=== PATIENT | female | born 1965 | race Caucasian/White ===

== ENCOUNTER 2017-02-05 15:44 | Inpatient (IN) | payer MEDICARE, MEDICAID ==
[~2017-02-05] VITALS: Ht 154.9 cm; Wt 139.5 kg
[~2017-02-05 15:44] MED LIST: BENZ1TAB7 PO; DOXE100C4 PO; GABA-502 PO; LAMO150T PO; LORA1TAB PO; METF1000 PO; OMEP20CA11 PO; PRAZ1CAP2 PO; RANI150C4 PO; RISP1TAB3 PO
[2017-02-05 16:00] VITALS: BP 127/83; PULSE 96; RESP 12
[2017-02-05 17:12] LABS: BASOPHILS % (AUTO) 0.2 % (0-3); EOSINOPHILS % (AUTO) 0.4 % (0-5); MONOCYTES % (AUTO) 3.7 % (4-12); Mean Corpuscular Volume 84.2 fL (81-100); NEUTROPHILS % (AUTO) 86.5 % (40-74); Platelet Count 197 bil/L (150-400)
[2017-02-05 17:35] LABS: Magnesium 1.4 mg/dL (1.6-2.6)
--- NOTE | 2017-02-05 18:12 | ED.REPORT ---
HPI-Abd Pain F Under 40 Date of Service Feb 05, 2017 ED Provider: Dr. Mathews. A 52 year old female with a history of umbilical hernia presents to the ED complaining of abdominal pain onset last night at midnight. Pain is described as shooting. She has had similar pain in the past that was related to her hernia. Drinking water exacerbates the pain and also causes nausea, diarrhea and vomiting, thus she has not had any food or fluid intake in the last 24 hours. Nursing Notes Stated Complaint: SEVERE ABDOMINAL PAIN Chief Complaint: Female Abdominal Pain Nursing Notes Reviewed: Yes Allergies: Coded Allergies: zolpidem (Verified Adverse Reaction, Severe, AMNESIA X 1 WEEK, LANDED IN THE HOSPITAL, 02/05/17) Scheduled Aripiprazole (Aripiprazole) 10 Mg Tablet 10 MG PO QAM Benztropine Mesylate (Benztropine Mesylate) 1 Mg Tablet 1 MG PO BID Doxepin (Doxepin) 150 Mg Capsule 150 MG PO HS Gabapentin (Gabapentin) 300 Mg Capsule 600 MG PO TID Glimepiride (Glimepiride) 1 Mg Tablet 1 MG PO DAILYWM Lamotrigine (Lamictal) 150 Mg Tablet 150 MG PO QAM Lorazepam (Lorazepam) 2 Mg Tablet 1 MG PO QID Lovastatin (Lovastatin) 20 Mg Tablet 20 MG PO HS Metformin (Glucophage) 1,000 Mg Tablet 1,000 MG PO BIDWM Mirtazapine (Mirtazapine) 45 Mg Tablet 45 MG PO HS Omeprazole (Omeprazole) 20 Mg Capsule.dr 20 MG PO QAM Prazosin (Prazosin) 1 Mg Capsule 1 MG PO HS Ranitidine (Ranitidine) 150 Mg Capsule 150 MG PO HS Risperidone (Risperidone) 1 Mg Tablet 1 MG PO HS General Time Seen by MD: 18:12 Chief Complaint Abdominal pain Hx Obtained From: Patient Arrived By: Walk-in Sudden in Onset?: No Onset Occurred: Yesterday (Last night at midnight) Symptom Duration: Since onset Progression since Onset: Unchanged Severity: Current: Moderate Severity: Maximum: Moderate Recent Healthcare: No recent doctor visit Similar Sx Previous: No Past Medical History Past Medical History Umbilical hernia, diagnosed 3 weeks ago. Reports no known allergies. 1. Depression 2. Anterior mediastinal mass 3. Chronic lower extremity edema 4. Arthritis 5. Bipolar disorder 6. Anxiety disorder 7. Nicotinic dependence 8. Morbid obesity Reports: Diabetes mellitus, GERD Past Surgical History laminectomy in 2011 Tracie and Hyst performed at the same time. Reports: Cholecystectomy, Hysterectomy Smoking History Current Every Day Smoker Social History Alcohol Use: "Social" Drug Use: Denies drug use Other Social History: Good social support, Local resident Ambulatory Status Independent Review of Systems Constitutional: Denies: Chills, Fever Respiratory: Denies: Non-productive cough Cardiovascular: Denies: Chest pain GI: Reports: Abdominal pain, Diarrhea, Nausea, Vomiting Complete sys rev & neg: except as marked. Physical Exam Initial Vital Signs Vital Signs (First) Date Time Temp Pulse Resp B/P Pulse Ox O2 Delivery O2 Flow Rate FiO2 02/05/17 16:00 37.4 96 12 127/83 Room Air 02/05/17 20:49 95 Initial VS: Reviewed General/Constitutional: Awake, Alert Distress / Hydration: Positive: Distress moderate Respiratory / Chest: Atraumatic, Breath sounds NL, Breath sounds = bilat, No respiratory distress, No rales, No rhonchi, No wheezing Cardiovascular: Heart rate NL, Regular rhythm, Heart sounds NL, No gallop, No murmurs, No rubs Patient has diffuse abdominal pain that is recreated. Back: Atraumatic, Full range of motion Head / Eyes: Normocephalic, PERRL, EOMI Skin: Atraumatic, Warm Patient is diaphoretic. Neurologic: Oriented X3, Speech NL Neck: Atraumatic, No swelling Upper Extremity / MS: No swelling, No edema Lower Extremity / Pelvis / MS: No swelling, No edema Interpretation & Diagnostics Lab Results Interpretation Result Diagram: 02/06/17 0214 02/06/17 0214 Test 02/05/17 17:00 02/05/17 17:47 Hemoglobin A1c 8.1% (4.8-5.6) Triglycerides Level 192mg/dL (0-149) Cholesterol Level 184mg/dL (100-199) LDL Cholesterol, Calculated 113.600mg/dL (0-99) VLDL Cholesterol 38.400mg/dL HDL Cholesterol 32mg/dL (>39) Cholesterol/HDL Ratio 5.75 (0.0-4.4) Lipase 12U/L (13-60) Hold Allan Top Tube Received (Received) Urine Color Dark yellow (YELLOW) Urine Appearance Hazy (CLEAR,HAZY) Urine pH 5.5 (5.0-8.0) Urine Specific [place] 1.020 (1.003-1.035) Urine Protein Tracemg/dL (NEG,TRACE) Urine Glucose (UA) 100mg/dL (NEGATIVE) Urine Ketones Negativemg/dL (NEGATIVE) Urine Occult Blood Negative (NEGATIVE) Urine Nitrite Negative (NEGATIVE) Urine Bilirubin Negative (NEGATIVE) Urine Urobilinogen Normalmg/dL (NORMAL) Urine Leukocyte Esterase Negative (NEGATIVE) Urine RBC 0-2/hpf (0-2) Urine WBC 0-5/hpf (0-5) Urine Epithelial Cells Many/hpf (NONE-MOD) Urine Crystals None seen (NONE SEEN) Urine Bacteria Few/hpf (NONE-FEW) Urine Hyaline Casts None/lpf (NONE) Urine Granular Casts None seen (NONE SEEN) Urine Waxy Casts None seen (NONE SEEN) Urine Red Blood Cell Casts None seen (NONE SEEN) Urine White Blood Cell Casts None seen (NONE SEEN) Urine Mucus None seen (None Seen) Urine Trichomonas None seen (NONE SEEN) Urine Yeast None (NONE SEEN) Urinalysis Comment Nn Urine Culture Reflexed Not indicated Hold Urine Received (Received) ECG Interpretation ECG Interpretation: Sinus rhythm. Anterolateral leads in V1-V4 which has been present on prior. No changes from prior EKG. Time: 20:30 Interpreted by: ED physician CT Abd / Pelvis Interpretation [facility]: IMPRESSION: 1. Mild peripancreatic fat stranding suspiciousfor acute pancreatitis. 2. Hepatosplenomegaly and hepatic steatosis. Note: The preliminary [facility] interpretation and the final report are concordant. Dictated by: Juliana Rincon M.D. on 02/05/2017 at 21:23. Approved by: Juliana Rincon M.D. on 02/05/2017 at 21:27. [facility]: CONCLUSION: Mild stranding is noted near the pancreas. The possibility of mild or early pancreatitis is raised. Hepatosplenomegaly. Findings consistent with fatty infiltration of the liver. Status post cholecystectomy. Signed by Silverio Seals M.D. Interpretation / Wet Read by: Interpret - Radiologist Re-Eval/Medical Decision Med Decision/Clinical Course Jsesie was still pretty miserable in spite of fluids opiates and nausea medicine. Her abdomen was still operator helper. The CT scan is concerning for early pancreatitis. As such she will be admitted to the hospitalist for further care and treatment. Source of Hx: Old records Re-Evaluation/Progress : Time of Eval: 22:02 Re-Evaluation/Progress Note: Rechecked patient and explained plan for disharge. Patient understands and agrees with the plan. All questions addressed. Consultation : Referral / Consult Name: Isiah Palomo MD Call Returned at: 22:08 Assembly Hand: Agrees with eval, Agrees with plan, Accepts admit Note: Discussed patient case with Dr. Palomo who accepts patient admit. Counseled Regarding: Diagnosis, Lab results, Need for follow-up, Need for admission Discharge & Departure Primary Impression: Acute pancreatitis Pancreatitis type: unspecified pancreatitis type Acute pancreatitis complication: unspecified Qualified Code: K85.90 - Acute pancreatitis without necrosis or infection, unspecified Additional Impression: Gastroenteritis Disposition: ADMITTED TO HOSPITAL Discharge Condition All VS Reviewed: Yes Condition: Stable Referrals: Ml Alfonso MD (PCP) Maurice Attestation Portions of this note were transcribed by Jose Roberto Lopez. I, Dr. Mathews personally performed the history, physical exam and medical decision-making; I reviewed and confirmed the accuracy of the information in the transcribed note. Signed by: Maurice Hector, 02/05/2017, [id number]. copies to: Ml Alfonso MD, Todd P DO Feb 05, 2017 18:12 Jose Roberto Lopez Feb 05, 2017 19:03 Negative (NEGATIVE) Urine Urobilinogen Normalmg/dL (NORMAL) Urine Leukocyte Esterase Negative (NEGATIVE) Urine RBC 0-2/hpf (0-2) Urine WBC 0-5/hpf (0-5) Urine Epithelial Cells Many/hpf (NONE-MOD) Urine Crystals None seen (NONE SEEN) Urine Bacteria Few/hpf (NONE-FEW) Urine Hyaline Casts None/lpf (NONE) Urine Granular Casts None seen (NONE SEEN) Urine Waxy Casts None seen (NONE SEEN) Urine Red Blood Cell Casts None seen (NONE SEEN) Urine White Blood Cell Casts None seen (NONE SEEN) Urine Mucus None seen (None Seen) Urine Trichomonas None seen (NONE SEEN) Urine Yeast None (NONE SEEN) Urinalysis Comment Nn Urine Culture Reflexed Not indicated Hold Urine Received (Received) Lactic Acid Level 2.3mmol/L (0.4-2.0) ECG Interpretation ECG Interpretation: Sinus rhythm. Anterolateral leads in V1-V4 which has been present on prior. No changes from prior EKG. Time: 20:30 Interpreted by: ED physician CT Abd / Pelvis Interpretation [facility]: IMPRESSION: 1. Mild peripancreatic fat stranding suspiciousfor acute pancreatitis. 2. Hepatosplenomegaly and hepatic steatosis. Note: The preliminary [facility] interpretation and the final report are concordant. Dictated by: Juliana Rincon M.D. on 02/05/2017 at 21:23. Approved by: Juliana Rincon M.D. on 02/05/2017 at 21:27. [facility]: CONCLUSION: Mild stranding is noted near the pancreas. The possibility of mild or early pancreatitis is raised. Hepatosplenomegaly. Findings consistent with fatty infiltration of the liver. Status post cholecystectomy. Signed by Silverio Seals M.D. Interpretation / Wet Read by: Interpret - Radiologist Re-Eval/Medical Decision Source of Hx: Old records Re-Evaluation/Progress : Time of Eval: 22:02 Re-Evaluation/Progress Note: Rechecked patient and explained plan for disharge. Patient understands and agrees with the plan. All questions addressed. Consultation : Referral / Consult Name: Isiah Palomo MD Call Returned at: 22:08 Assembly Hand: Agrees with eval, Agrees with plan, Accepts admit Note: Discussed patient case with Dr. Palomo who accepts patient admit. Counseled Regarding: Diagnosis, Lab results, Need for follow-up, Need for admission Discharge & Departure Disposition: ADMITTED TO HOSPITAL Discharge Condition All VS Reviewed: Yes Condition: Stable Referrals: Ml Alfonso MD (PCP) Maurice Attestation Portions of this note were transcribed by Jose Roberto Lopez. I, Dr. Mathews personally performed the history, physical exam and medical decision-making; I reviewed and confirmed the accuracy of the information in the transcribed note. Signed by: Maurice Hector, 02/05/2017, [id number]. copies to: Ml Alfonso MD, Todd P DO Feb 05, 2017 18:12 Jose Roberto Lopez Feb 05, 2017 19:03
[2017-02-05] MEDS ORDERED: 0.9% Sodium Chloride 1,000 ML IV ONE ×2 (19:01→23:00)
[2017-02-05] MEDS: Ondansetron 2 mg/mL 2 mL Inj IVPUSH PRN ×2 (19:52→21:55)
[2017-02-05] MEDS: HYDROmorphone 0.5 mg/0.5 mL iSecure Syringe IVPUSH PRN ×2 (19:52→21:51)
[2017-02-05 20:49] VITALS: BP 114/76; PULSE 90; RESP 18; O2SAT 95
[2017-02-05 21:09] LABS: APPEARANCE,URINE HAZY (CLEAR,HAZY); COLOR,URINE DARK YELLOW (YELLOW); PH,URINE 5.5 (5.0-8.0)
[2017-02-05 21:10] LABS: OCCULT BLOOD,URINE NEGATIVE (NEGATIVE); UROBILINOGEN,URINE NORMAL (NORMAL)
--- NOTE | 2017-02-05 21:28 | DRSVH ---
PROCEDURE: CT ABDOMEN AND PELVIS WITH CONTRAST ([id number]) INDICATIONS: midline severe pain, TECHNIQUE: After the administration of intravenous contrast, 5 mm thick sections acquired from the diaphragm to the symphysis. 5 mm coronal and sagittal reformats were acquired. For radiation dose reduction, the following was used: automated exposure control, adjustment of mA and/or kV according to patient siz e. COMPARISON: None. FINDINGS: Image quality: Excellent. ABDOMEN: Lung bases: Lung bases are clear. Heart size is normal. Solid organs: The liver is enlarged and diffusely hypodense suggesting fatty infiltration. The splee n demonstrates a normal enhancement and measures 18.9 cm in length. The Gallbladder is surgically abs ent. Biliary system is non dilated. There is homogeneous enhancement of the pancreas. Mild peripancr eatic fat stranding is present around the pancreatic head. A there is a small fluid filled duodenal d iverticulum. No adrenal nodules. Kidneys demonstrate normal size and enhancement, without hydronephr osis. Peritoneum and bowel: Bowel loops demonstrate normal wall thickness and caliber. The appendix is thi n walled. No free fluid or air. Nodes and vessels: No retroperitoneal or mesenteric adenopathy by size criteria. Aorta and inferior vena cava are normal in size. Miscellaneous: No ventral hernias. PELVIS: Genitourinary: Bladder wall thickness is normal. The uterus is nonvisualized and may be surgically absent. Miscellaneous: No inguinal hernias or adenopathy. Bones: No suspicious bony lesions. No vertebral body compression fractures. IMPRESSION: 1. Mild peripancreatic fat stranding suspicious for acute pancreatitis. 2. Hepatosplenomegaly and hepatic steatosis. Note: The preliminary [facility] interpretation and the final report are concordant. Dictated by: Juliana Rincon M.D. on 02/05/2017 at 21:23 Approved by: Juliana Rincon M.D. on 02/05/2017 at 21:27
[2017-02-05] MEDS ORDERED: 0.9% Sodium Chloride 1,000 ML IV SCH (22:11)
[2017-02-05] MEDS ORDERED: Polyethylene Glycol (PEG) 17 Gm Powder PO PRN (22:15)
[2017-02-05] MEDS ORDERED: Alum-Mag Hydrox-Simeth 30 mL Suspension PO PRN (22:15)
[2017-02-05] MEDS ORDERED: GABA-502 PO (22:58)
[2017-02-05] MEDS ORDERED: DOXE150C7 PO (22:58)
[2017-02-05] MEDS ORDERED: LORA2TAB PO (22:58)
[2017-02-05] MEDS ORDERED: ARIP10TA16 PO (22:59)
[2017-02-05] MEDS ORDERED: LOVA20TA PO (22:59)
[2017-02-05] MEDS ORDERED: GLIM1TAB PO (22:59)
[2017-02-05] MEDS ORDERED: MIRT45TA5 PO (22:59)
[2017-02-05] MEDS ORDERED: Promethazine Inj 12.5 MG in 0.9% Sodium Chloride-Pha MIX 100 ML IV ONE (23:00)
--- NOTE | 2017-02-06 00:24 | NUR ---
Admit Note Pt able to answer H&P. Oriented to room and use of call light. Pt alert and oriented x3. Anxious especially about her meds for the night. Pt reports Phenergan taking effect for nausea at this time.
[2017-02-06] MEDS ORDERED: Doxepin 50 mg Capsule PO SCH (00:36)
[2017-02-06] MEDS: Heparin 5,000 Unit/mL Inj SUBQ SCH ×3 (00:38→15:40)
[2017-02-06 00:46] VITALS: BP 120/73; PULSE 82; O2SAT 95
[2017-02-06] MEDS: HYDROmorphone 0.5 mg/0.5 mL iSecure Syringe IVPUSH PRN (00:49)
--- NOTE | 2017-02-06 00:53 | PCM.HPMED ---
Subjective Date of Service Feb 05, 2017 Primary Provider: Admitting Physician: Primary Care Physician: Ml Alfonso MD Attending Physician: Admit Status: From the Emergency Department Chief Complaint: Abdominal pain History of Present Illness: Patient is a 52 y/o female with a history of diabetes mellitus type 2, morbid obesity, bipolar disorder and GERD who presented to the ED with the complaint of abdominal pain for the past couple of days. Associated symptoms include nausea, vomiting and severe unrelenting RUQ abdominal pain since last night. She states that she has never had anything like this before but the pain is similar to the pain she experienced with her hernia. She denies alcohol or illicit drug use. She does report eating a marijuana cookie several days ago but this was the first time in years and she states that she did not enjoy it. Additionally, she reports anxiety about her need for admission and would really like to know what is causing this. She states that she recently was diagnosed with hernia and evaluated by a surgeon, whose name she does not remember, who advised bariatric consult prior to having her hernia repaired. The patient states that she has lost 40lbs recently and is trying to lose weight without bariatric surgery. She denies fever, chills, chest pain, palpitations or shortness of breath. She states that she has not been able to eat anything for the past couple of days because eating and drinking seems to exacerbate her symptoms. She denies any alleviating factors and describes the pain as severe with radiation to her RUQ. Of note she is s/p cholecystectomy approximately 10 years ago without complications. In the ED, vitals 37.4, BP 127/83, HR 96, RR 12, SpO2 95% on room air. Labs: Lipase 12, WBC 8.1, H/H 13.9/43.3, plts 197, sodium 131, potassium 4.1, chloride 94, bicarb 19, BUN 14, creatinine 0.74, serum glucose 280, lactic acid 2.7, calcium 8.6, magnesium 1.4, AST/ALT 81/85, alk phos 98, total bili 0.7. Urinalysis with no signs of infection. ECG showing sinus rhythm, no acute ischemic changes and similar to prior EKG. CT abdomen and pelvis wild mild peripancreatic fat stranding suspicious for acute pancreatitis and hepatosplenomegaly as well as hepatic steatosis. Review of Systems: A comprehensive review of systems was conducted with the patient and found to be negative except as above in the History of Present Illness. Allergies Coded Allergies: zolpidem (Verified Adverse Reaction, Severe, AMNESIA X 1 WEEK, LANDED IN THE HOSPITAL, 02/05/17) Home Medications Benztropine Mesylate 1 MG PO BID Doxepin 150 MG PO DAILY Gabapentin 300 MG PO TID Lamotrigine 150 MG PO DAILY Lorazepam 1 MG PO QID Metformin 1,000 MG PO BID Omeprazole 20 MG PO DAILY Prazosin 1 MG PO HS Risperidone 1 MG PO HS Ranitidine 150 MG PO DAILY PRN For Epigastric Distress mirtazipine PMH Umbilical hernia Depression Anterior mediastinal mass Chronic lower extremity edema Arthritis Bipolar disorder Anxiety disorder Nicotinic dependence Morbid obesity Diabetes mellitus GERD Surgical History Laminectomy in 2010 Cervical Fusion of C3-C4 and C5-C6 Right and left wrist surgery Cholecystectomy ALMA with BSO Tubal Ligation Family History Paternal Grandfather - heart attack in 70s Maternal Grandmother - heart attack in late 60s Father - esophageal cancer Mother - Hypertension Social History Hx Alcohol Use: No (once a year) Hx Substance Use: No Hx Tobacco Use: Yes (1 ppd x 20 years) Smoking Status: Current Every Day Smoker, Former Smoker Living Arrangement: with Friends/Roommate Exam Vital Signs Vital Sign - Last Date Time Temp Pulse Resp B/P Pulse Ox O2 Delivery O2 Flow Rate FiO2 02/05/17 20:49 90 18 114/76 95 Room Air 02/05/17 16:00 37.4 Exam Gen: Obese, well-appearing female who appears uncomfortable but in no acute distress. HEENT: Normocephalic, atraumatic. PERRLA, no scleral icterus, oropharynx appears normal with moist mucosa Neck: Non-tender, no JVD/bruits or lymphadenopathy Cardiac: RRR with no murmurs, rubs or gallops appreciated Pulmonary: Clear to auscultation bilaterally with no crackles, wheezes, or rhonchi. Normal respiratory effort with no use of accessory muscles. Abd: Obese, soft, mildly distended, diffusely tender to palpation william in epigastric area and RUQ, no rebound or guarding, small reducible ventral hernia present. Ext: No clubbing, cyanosis, edema, or lymphadenopathy appreciated. Skin: Normal temperature, turgor, and texture; no rash, ulcers, or subcutaneous nodules appreciated. Neuro: Cranial nerves grossly intact. Normal muscle strength, tone, and bulk. Reflexes, coordination, and sensory function within normal limits. No known gait impairment. Psych: Normal mood and affect. Alert and oriented to person, place, and time. Lab and Diagnostics Labs Laboratory Tests Test 02/05/17 17:00 02/05/17 17:47 White Blood Count 8.1th/mm3 (3.8-10.1) Red Blood Count 5.14mil/mm3 (3.90-5.20) Hemoglobin 13.9g/dL (12.0-15.6) Hematocrit 43.3% (35.0-46.0) Mean Corpuscular Volume 84.2fL (81-100) Mean Corpuscular Hemoglobin 27.0pg (27.0-35.0) Mean Corpuscular Hemoglobin Concent 32.1% (32.0-37.0) Red Cell Distribution Width 14.5% (12.3-15.4) Platelet Count 197bil/L (150-400) Neutrophils (%) (Auto) 86.5% (40-74) Lymphocytes (%) (Auto) 8.7% (14-46) Monocytes (%) (Auto) 3.7% (4-12) Eosinophils (%) (Auto) 0.4% (0-5) Basophils (%) (Auto) 0.2% (0-3) Sodium Level 131mEq/L (134-144) Potassium Level 4.1mEq/L (3.5-5.2) Chloride Level 94mEq/L (97-108) Carbon Dioxide Level 19mmol/L (18-29) Blood Urea Nitrogen 14mg/dL (6-24) Creatinine 0.74mg/dL (0.57-1.00) Estimat Glomerular Filtration Rate 119mL/min (>59) Glucose Level 280mg/dL (60-99) Lactic Acid Level 2.7mmol/L (0.4-2.0) Calcium Level 8.6mg/dL (8.5-10.1) Magnesium Level 1.4mg/dL (1.6-2.6) Total Bilirubin 0.7mg/dL (0.0-1.2) Aspartate Amino Transf (AST/SGOT) 81U/L (0-50) Alanine Aminotransferase (ALT/SGPT) 85U/L (0-32) Alkaline Phosphatase 98U/L (25-150) Total Protein 7.2g/dL (6.4-8.4) Albumin 4.1g/dL (3.4-5.0) Lipase 12U/L (13-60) Hold Allan Top Tube Received (Received) Urine Color Dark yellow (YELLOW) Urine Appearance Hazy (CLEAR,HAZY) Urine pH 5.5 (5.0-8.0) Urine Specific [place] 1.020 (1.003-1.035) Urine Protein Tracemg/dL (NEG,TRACE) Urine Glucose (UA) 100mg/dL (NEGATIVE) Urine Ketones Negativemg/dL (NEGATIVE) Urine Occult Blood Negative (NEGATIVE) Urine Nitrite Negative (NEGATIVE) Urine Bilirubin Negative (NEGATIVE) Urine Urobilinogen Normalmg/dL (NORMAL) Urine Leukocyte Esterase Negative (NEGATIVE) Urine RBC 0-2/hpf (0-2) Urine WBC 0-5/hpf (0-5) Urine Epithelial Cells Many/hpf (NONE-MOD) Urine Crystals None seen (NONE SEEN) Urine Bacteria Few/hpf (NONE-FEW) Urine Hyaline Casts None/lpf (NONE) Urine Granular Casts None seen (NONE SEEN) Urine Waxy Casts None seen (NONE SEEN) Urine Red Blood Cell Casts None seen (NONE SEEN) Urine White Blood Cell Casts None seen (NONE SEEN) Urine Mucus None seen (None Seen) Urine Trichomonas None seen (NONE SEEN) Urine Yeast None (NONE SEEN) Urinalysis Comment Nn Urine Culture Reflexed Not indicated Hold Urine Received (Received) Result Diagram: 02/05/17 1700 02/05/17 1700 X-Rays, CTs and MRIs CT ABDOMEN AND PELVIS WITH CONTRAST IMPRESSION: 1. Mild peripancreatic fat stranding suspicious for acute pancreatitis. 2. Hepatosplenomegaly and hepatic steatosis. Note: The preliminary [facility] interpretation and the final report are concordant. Dictated by: Juliana Rincon M.D. on 02/05/2017 at 21:23 Approved by: Juliana Rincon M.D. on 02/05/2017 at 21:27 Assessment & Plan 52 y/o female with a history of diabetes mellitus type 2, morbid obesity, and GERD who presented to the ED with the complaint of worsening abdominal pain. Admitted for further management and evaluation of acute pancreatitis. 1. Acute pancreatitis, pos. Active. -Patient is ~10yrs s/p cholecystectomy, denies alcohol or illicit drug use. -Lipase 12, liver enzymes elevated, non-obstructive pattern -in ED: s/p 1L bolus of normal saline x2, zofran/promethazine for nausea, IV dilaudid for pain -triglyceride level, pending -Keep patient NPO -IV fluid resuscitation, normal saline at 200mls/hr -Pain control IV hydromorphone 1mg q4h, prn -CBC, CMP in the morning 2. Lactic acidosis, poa. Active -likely secondary to #1 -lactic acid 2.7 on admission -will trend lactic acid q4 -treat underlying cause, as above 3. Transaminitis, unknown chronicity, poa. Active -likely chronic secondary to fatty infiltration as well as #1 -AST/ALT 81/85, alk phos 98, total bili 0.7 -CMP in the morning 4. Hyponatremia, poa. Active. -sodium sodium 131 -IVFs as above -CMP in the morning 5. Hypomagnesemia, poa. Active -magnesium 1.4 -replete w/IV magnesium -CMP in the morning 6. Diabetes mellitus type 2 (chronic), poa. Ongoing -serum glucose 280 -HbA1c pending -held metformin, glimeperide -low dose correctional insulin ordered 7. Hx of bipolar disorder and anxiety (chronic), poa. Ongoing -continue home medications FEN: NPO IVF: NS at 100mls/hr DVT Prophylaxis: Sub-q Heparin, 5,000units Q8h PRN: Acetaminophen-fever/headache/mild/moderate pain Antiemetics, as needed Bowel regimen, as needed. Disposition: Patient admitted under inpatient status with expected length of stay > 2 midnights for severity of present symptoms, complexities of treatment plan and risk for adverse event. Pain Evaluation: Adequate Pain Control VTE Prophylaxis Indicated: Meets Criteria for Anticoag Therapy VTE Prophylaxis: Sub-Q Heparin (Unfractionated) Resuscitation Status: CPR: Attempt Resuscitation Attending Statement The patient was seen and examined together with Dr. Brunson on 02/05 and I agree with the history, exam and plan as outlined in the note above. Madeline Brunson DO Feb 05, 2017 22:11 Isiah Palomo MD Feb 06, 2017 01:47
[2017-02-06] MEDS ORDERED: Glucose 40% Oral Gel 15 Gm Tube PO PRN (01:40)
[2017-02-06] MEDS: LORazepam 1 mg Tablet PO PRN ×4 (01:56→21:46)
[2017-02-06] MEDS: risperiDONE 1 mg Tablet PO SCH ×2 (02:01→21:58)
[2017-02-06 02:26] LABS: BASOPHILS % (AUTO) 0.3 % (0-3); EOSINOPHILS % (AUTO) 0.2 % (0-5); Mean Corpuscular Volume 84.9 fL (81-100); NEUTROPHILS % (AUTO) 67.3 % (40-74); Platelet Count 183 bil/L (150-400)
[2017-02-06 04:11] VITALS: BP 138/71; PULSE 91; O2SAT 96
--- NOTE | 2017-02-06 04:46 | NUR ---
Pain/Anxiety Patient reports Dilaudid helps with her pain. Pain does not completely go away with Dilaudid. Pt anxious r/t her home meds. Reassured patient and provided most of her home meds. Pt sleeping but easily arousable. No further nausea/vomiting noted/reported at this time. Addendum: 02/06/17 at 0610 by CHELSIE WHITE RN Diarrhea Pt had x1 watery, yellow loose bm. aware of Mg 1.4 with new orders noted.
[2017-02-06] MEDS ORDERED: Magnesium Sulf 2 Gm/50mL Water 2 GM in IV Premix 1 EACH IV ONE (05:25)
[2017-02-06] MEDS: Insulin LISPRO 300 Unit/3 mL Inj SUBQ SCH ×4 (05:34→22:00)
[2017-02-06] MEDS: HYDROmorphone 1 mg/mL Inj IVPUSH PRN ×4 (05:46→21:51)
[2017-02-06] MEDS: 0.9% Sodium Chloride 1,000 ML IV SCH ×4 (06:30→22:14)
[2017-02-06] MEDS: Ondansetron 2 mg/mL 2 mL Inj IVPUSH PRN ×2 (06:40→12:10)
[2017-02-06] MEDS: lamoTRIgine 100 mg Tablet PO SCH (07:52)
[2017-02-06] MEDS: ARIPiprazole 10 mg Tablet PO SCH (07:52)
[2017-02-06] MEDS: Pantoprazole 20 mg ER24 Tablet PO SCH (07:52)
[2017-02-06 08:04] VITALS: BP 111/46; PULSE 79; RESP 18; O2SAT 96
[2017-02-06 12:13] VITALS: BP 95/44; PULSE 76; RESP 16; O2SAT 94
--- NOTE | 2017-02-06 14:28 | NUR ---
Admit [facility] – [place] Pt admtted to [facility] [place] room 3017 at 1312. Pt denied pain. IVF infusing. Pt A&O. Ambulated in hallway shortly after arriving to unit. Pt oriented to room and facility. Denies having questions. Bed in low position, upper rails up, call light in reach. Will continue to monitor.
--- NOTE | 2017-02-06 16:33 | PCM.PNMED ---
Subjective Date of Service Feb 06, 2017 Subjective Patient was seen and examined at bedside today. Patient denies any chest pain, shortness of breath, nausea, vomiting, diarrhea. Patient does report abdominal pain in the right upper quadrant but states that the pain has improved since admission. Overnight events: None Exam Vital Signs Vital Sign - Last Date Time Temp Pulse Resp B/P Pulse Ox O2 Delivery O2 Flow Rate FiO2 02/06/17 12:13 36.7 76 16 95/44 94 Room Air 02/06/17 04:11 2.00 Intake and Output 02/05/17 02/05/17 02/06/17 Cumulative From/Thru 15:00 23:00 07:00 02/05/17 16:00 - 02/06/17 06:07 Intake Total 1000 ml 1884 ml 2884 ml Output Total 350 ml 350 ml Balance 1000 ml 1534 ml 2534 ml Intake IV Total 1000 ml 1884 ml 2884 ml Output Urine Total 350 ml 350 ml # Voids 4 4 # Bowel Movements 1 1 Exam Physical Exam: GEN: Patient was awake, alert, responding appropriately to questions HEENT: Pupils equal round and reactive to light, extraocular eye muscles intact , Neck soft supple, trachea midline, nomocephalic/atraumatic CV: +S1/S2, regular rate and rhythm, no murmurs auscultated Respiratory: CTAB, no wheezes, rales, rhonchi GI: +bowel sounds x4, soft, compressible, mild tenderness to palpation in the midepigastric region, moderate tenderness in the right upper quadrant region, positive Mcrae sign EXT: no clubbing, cyanosis, edema Neuro: Cranial nerves II-XII grossly intact Psych: mood and affect were appropriate IVs and Medications Medications Reviewed: Medications were reviewed in detail Lab and Diagnostics Result Diagram: 02/06/1721302/06/17213 X-Rays, CTs and MRIs CT ABDOMEN AND PELVIS WITH CONTRAST IMPRESSION: 1. Mild peripancreatic fat stranding suspicious for acute pancreatitis. 2. Hepatosplenomegaly and hepatic steatosis. Note: The preliminary [facility] interpretation and the final report are concordant. Dictated by: Juliana Rincon M.D. on 02/05/2017 at 21:23 Approved by: Juliana Rincon M.D. on 02/05/2017 at 21:27 Assessment & Plan 52-year-old female with a history of diabetes mellitus type 2, morbid obesity, and GERD who presented to the ED with the complaint of worsening abdominal pain. Admitted for further management and evaluation of acute pancreatitis. Acute pancreatitis, present on admission active. -Patient had a cholecystectomy 10 years ago, denies any alcohol or illicit drug use -Lipase is low at 12 -Triglycerides are elevated at 192 -Continue IV fluids -Patient is nothing by mouth -Pain control -Follow up labs in the morning Lactic acidosis, present on admission. (Resolved) -Most likely secondary to the acute pancreatitis -2.7 on admission, repeat lactic acid this morning 1.3 decreased back to normal range Transaminitis, unknown chronicity, present on admission. (Resolving) -AST/ALT 81/85 on admission currently 59/66 trending down -Alkaline phosphatase and total bili are within normal range -Continue to monitor Hyponatremia present on admission - Sodium was 131 -Continue to replete with IV fluids -Continue to monitor Hypomagnesemia present on admission (resolved) -Magnesium is 1.4 on admission -Replete magnesium with 2 g -Follow up magnesium in the morning Diabetes type II chronic stable -Hemoglobin A1c 8.1 -Metformin and glyburide were held -Continue insulin sliding scale for nothing by mouth we will make dose adjustments as patient restarts eating History of bipolar disease and anxiety chronic and stable -Continue home medications FEN: NPO IVF: NS at 200mls/hr DVT Prophylaxis: Sub-q Heparin, 5,000units Q8h PRN: Acetaminophen-fever/headache/mild/moderate pain Antiemetics, as needed Bowel regimen, as needed. Disposition: Patient is currently admitted for pancreatitis most likely secondary to hypertriglyceridemia and diabetes. The patient's triglycerides are elevated however this is an improvement according to the patient. The patient does not have a gallbladder so elevated triglycerides as #1 on my differentials. The patient also denies any alcohol use. The patient will remain nothing by mouth and we will continue to fluid resuscitate the patient. Once her abdominal pain has decreased significantly we will consider starting the patient on a clear liquid diet and progressing from that point on. VTE Prophylaxis: Sub-Q Heparin (Unfractionated) VTE Mechanical Devices: Venous Foot Pump Resuscitation Status: CPR: Attempt Resuscitation America Whitt DO Feb 06, 2017 16:33
[2017-02-06 20:34] VITALS: BP 97/64; PULSE 88; RESP 16; O2SAT 93
[2017-02-07] VITALS (9 sets, daily range): BP systolic 91–117; BP diastolic 60–75; PULSE 81–99; RESP 14–18; O2SAT 92–96
[2017-02-07] MEDS: Heparin 5,000 Unit/mL Inj SUBQ SCH ×3 (00:30→18:37)
[2017-02-07] MEDS: HYDROmorphone 1 mg/mL Inj IVPUSH PRN ×4 (03:30→18:39)
[2017-02-07] MEDS: 0.9% Sodium Chloride 1,000 ML IV SCH ×4 (03:30→22:20)
[2017-02-07] MEDS: LORazepam 1 mg Tablet PO PRN ×2 (04:13→21:08)
[2017-02-07 06:08] LABS: Mean Corpuscular Hemoglobin 26.9 pg (27.0-35.0); Mean Corpuscular Volume 87.3 fL (81-100)
--- NOTE | 2017-02-07 06:40 | NUR ---
Pt education Pt was educated by this RN regarding hypertriglyceridemia, diet and exercise.
[2017-02-07] MEDS ORDERED: KCl 40 mEq/D5W 500 mL 40 MEQ in IV Premix 500 EACH IV ONE (07:45)
[2017-02-07] MEDS: lamoTRIgine 100 mg Tablet PO SCH (08:40)
[2017-02-07] MEDS: ARIPiprazole 10 mg Tablet PO SCH (08:40)
[2017-02-07] MEDS: Insulin LISPRO 300 Unit/3 mL Inj SUBQ SCH ×4 (08:43→22:00)
[2017-02-07] MEDS: Pantoprazole 20 mg ER24 Tablet PO SCH (08:51)
--- NOTE | 2017-02-07 13:54 | NUR ---
PAIN P-Patient c/o right side abdominal pain 6/10, just below right ribs anterior. I- Patient given 1mg Dilaudid IVP Q4hrs. MD has ordered GI consult and abdominal U/S. E- Patient resting peacefully after medication, awaiting U/S and GI consult.
--- NOTE | 2017-02-07 15:52 | NUR ---
CONNER signed @ 6355 AM
--- NOTE | 2017-02-07 16:25 | PCM.CHPMED ---
Subjective Date of Service: Feb 07, 2017 Primary Physician: Admitting Physician: Isiah Palomo MD Primary Care Physician: Ml Alfonso MD Attending Physician: Isiah Palomo MD Admit Status: From the Emergency Department Chief Complaint: Chief Complaint: Reason for consultation: acute pancreatitis, RUQ abdominal pain History of Present Illness: GASTROENTEROLOGY CONSULTATION Jessie Barrios is a 52-year-old super obese woman with history of GERD, hepatic steatosis, DM, and bipolar disorder who presented to the ED with 2-day history of RUQ abdominal pain, nausea, and vomiting. She states that she has never had anything like this before, but the abdominal pain is similar to the pain she experienced with her hernia. The pain is "sore" and unrelenting. It radiates to her back and feels like a "pulled muscle." Moving seems to aggravate the pain and nothing relieve it. Patient also reports excessive sweating although she has no fever or chills. She had vomiting and watery diarrhea for 15 hours prior to admission, but her symptoms have all resolved except for the abdominal pain. She also denies constipation, dizziness, chest pain, palpitations, or SOB. She is s/p cholecystectomy approximately 10 years ago. She denies drinking alcohol, drug uses, or excessive Tylenol use. Regarding to her hernia, patient thought she has a hiatal hernia, but per [facility], she was evaluated for incisional hernia by Dr. Tiny Long on 01/08/17. Patient had a laparoscopic cholecystectomy in 2001 and she now has a bulge at the mid epigastric port site just below the xiphoid. A CT scan was performed and there is a 3 cm fascial defect. The liver is just beneath it. There is no hiatal hernia on CT scan. The bulge is bothersome to her and somewhat tender. She was advised to lose weight and referred to bariatric surgery before having the hernia repaired. Patient reports to lose 50lbs or so on her own. has not had an upper endoscopy, and in light of her GERD, she was scheduled to have both upper and lower endoscopy at the end of January. On admission, CT abd showed Mild peripancreatic fat stranding is present around the pancreatic head. A there is a small fluid filled duodenal diverticulum. Hepatospenomeglay and hepatic steatosis noted on the CT as well. Labs were not significant for infection. CBC and CMP normal. Lipase 16. Transaminitis appears to be chronic, AST 64 and ALT 57. ALT 70. Total bili 0.3. GI service was consulted for possible EGD to investigate her RUQ abdominal pain. Review of Systems: Constitutional: Reports: Sweats, Denies: Chills, Fever, Weakness Eyes: Denies: Blurred Vision ENT: Denies: Dysphagia, Hoarseness, Throat Pain Neck: Denies: Mass, Pain, Swelling Cardiovascular: Denies: Chest Pain, Edema, Irregular Heart Rate, Palpitations, Rapid Heart Rate, SOB on Exertion Respiratory: Denies: Cough, Cough with bloody sputum, Shortness of Breath, Snoring Gastrointestinal: Reports: Abdominal Pain, Change in Appetite, Diarrhea, Heartburn, Nausea, Vomiting, Denies: Black tarry stools, Blood in stool (red), Constipation Genitourinary: Reports: No burning or pain with urination, Denies: Decrease Urinary Stream, Hematuria, Nocturia Skin: Denies: Blisters, Bruising, Itching Neurological: Denies: Change in LOC, Change in Speech, Confusion, Dizziness, Localized Weakness, Numbness, Seizures, Somnolence, Tremors Hematologic: Denies: Abnormal Bleeding, Bruising PMH Past Medical History Diabetes, hepatic steatosis, COPD, bipolar disorder, generalized anxiety disorder, GERD, diabetic neuropathy, panic disorder with [place] phobia, insomnia , sleep apnea, chronic neck pain, chronic low back pain, vitamin D deficiency, chronic sinusitis Bedside Blood Glucose: 181 Surgical History Neck fusion 2 in 1989 and 1999. [place]olecyst[place] [address] Vidal. Hysterectomy due to cancer in 2001. Bilateral wrist surgery status post traumatic injury Home Medications Benztropine Mesylate 1 MG PO BID Doxepin 150 MG PO DAILY Gabapentin 300 MG PO TID Lamotrigine 150 MG PO DAILY Lorazepam 1 MG PO QID Metformin 1,000 MG PO BID Omeprazole 20 MG PO DAILY Prazosin 1 MG PO HS Risperidone 1 MG PO HS Ranitidine 150 MG PO DAILY PRN For Epigastric Distress mirtazipine Allergies: Coded Allergies: zolpidem (Verified Adverse Reaction, Severe, AMNESIA X 1 WEEK, [facility]ED IN THE HOSPITAL, 02/05/17) Family History Family History Paternal Grandfather - heart attack in 70s Maternal Grandmother - heart attack in late 60s Father - esophageal cancer, stage IV, diagnosed 3 years ago, alive. Mother - Hypertension, depression Social History Hx Alcohol Use: No (once a year)Hx Substance Use: NoHx Tobacco Use: Yes (1 ppd x 20 years) Smoking Status: Former Smoker (quit 2 years ago) Living Arrangement: with Friends/Roommate Exam Vital Signs Vital Sign - Last Date Time Temp Pulse Resp B/P Pulse Ox O2 Delivery O2 Flow Rate FiO2 02/07/17 12:24 36.8 84 104/71 Room Air 02/07/17 09:33 17 95 02/06/17 04:11 2.00 Intake and Output 02/06/17 02/06/17 02/07/17 Cumulative From/Thru 15:00 23:00 07:00 02/05/17 16:00 - 02/07/17 06:52 Intake Total 1814 ml 0 ml 4698 ml Output Total 200 ml 350 ml 200 ml 1100 ml Balance -200 ml 1464 ml -200 ml 3598 ml Intake Oral 0 ml 0 ml 0 ml IV Total 1814 ml 4698 ml Output Urine Total 200 ml 350 ml 200 ml 1100 ml # Voids 4 # Bowel Movements 1 2 Additional Information: Gen: Obese, well-appearing female who appears uncomfortable but in no acute distress, sitting upright by the bed. HEENT: Normocephalic, atraumatic. PERRLA, no scleral icterus, oropharynx appears normal with moist mucosa Neck: Non-tender, no JVD/bruits or lymphadenopathy Cardiac: RRR with no murmurs, rubs or gallops appreciated Pulmonary: Clear to auscultation bilaterally with no crackles, wheezes, or rhonchi. Normal respiratory effort with no use of accessory muscles. Abd: Obese, soft, non-distended, diffusely tender to palpation especially in RUQ , no rebound or guarding. Midline epigastric bulge consistent with known incisional hernia. Ext: No clubbing, cyanosis, edema, or lymphadenopathy appreciated. Skin: Normal temperature, turgor, and texture; no rash, ulcers, or subcutaneous nodules appreciated. Neuro: Cranial nerves grossly intact. Normal muscle strength, tone, and bulk. Reflexes, coordination, and sensory function within normal limits. No known gait impairment. Psych: Normal mood and affect. Alert and oriented to person, place, and time. Lab and Diagnostics Result Diagram: 02/07/17 0550 02/07/17 0550 X-Rays, CTs and MRIs PROCEDURE: CT ABDOMEN AND PELVIS WITH CONTRAST IMPRESSION: 1. Mild peripancreatic fat stranding suspicious for acute pancreatitis. 2. Hepatosplenomegaly and hepatic steatosis. Dictated by: Juliana Rincon M.D. on 02/05/2017 at 21:23 Approved by: Juliana Rincon M.D. on 02/05/2017 at 21:27 Assessment & Plan Assessment 52-year-old super obese woman with history of GERD, hepatic steatosis, DM, and bipolar disorder who presented to the ED with 2-day history of RUQ abdominal pain, nausea, and vomiting. She was found to have mild perpancreatic fat stranding on CT that is suspicious for acute pancreatitis. GI service was consulted for the acute pancreatitis, transaminitis and RUQ abdominal pain. Assessments: 1. Acute RUQ pain, present on admission, active. 2. GERD, acute on chronic. 3. Hepatic steatosis, chronic. Plans: - Patient met the pancreatitis diagnosis with CT findings and RUQ/epigastric abdominal pain although her lipase is normal. - Triglycerides elevated at 192 - We agree with the hospitalist's conservative management for the acute pancreatitis: continue IVF, NPO, and pain medication. - Other DDx for the RUQ include but not limited to peptic ulcer, gastroparesis, hepatitis, musculoskeletal pain, or malignancy. - The prospect of an EGD was discussed with the patient and she wished to proceed. Will plan for an upper endoscopy this afternoon. - Once her pancreatitis improves, we suggest ordering MRI with and without contrast of the pancreas. Consider a gastric emptying study as outpatient. - Increase the Pantoprazole to 40mg daily for better control of the GERD. - The patient's LFTs are stable compared to her previous labs, and thus the transaminitis is likely secondary to hepatic steatosis. - We discussed the case with Dr. Tiny Long, who saw the patient as out patient, and she agreed to perform the screening colonoscopy as outpatient. Thank you for the consultation. Please contact us if you have any questions or concerns. Problems: Pain Evaluation: Adequate Pain Control GI Prophylaxis: Proton Pump Inhibitor VTE Prophylaxis Indicated: Meets Criteria for Anticoag Therapy VTE Prophylaxis: Sub-Q Heparin (Unfractionated) VTE Mechanical Devices: Intermittant Pneumatic CD Resuscitation Status: CPR: Attempt Resuscitation Jessica Liao DO Feb 07, 2017 16:24 Karl Cortez MD Feb 08, 2017 11:51 Problems: Pain Evaluation: Adequate Pain Control VTE Prophylaxis Indicated: Meets Criteria for Anticoag Therapy VTE Prophylaxis: Sub-Q Heparin (Unfractionated) VTE Mechanical Devices: Intermittant Pneumatic CD Resuscitation Status: CPR: Attempt Resuscitation Jessica Liao DO Feb 07, 2017 16:24
[2017-02-07] MEDS: Lactated Ringer's 1,000 ML IV SCH ×2 (17:07→17:33)
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
--- NOTE | 2017-02-07 17:47 | PCM.PNMED ---
Subjective Date of Service Feb 07, 2017 Subjective reports continued midepigastric and right upper abdominal pain. nausea but no vomiting. denies any other new issues/complaints. no diarrhea. Exam Vital Signs Vital Sign - Last Date Time Temp Pulse Resp B/P Pulse Ox O2 Delivery O2 Flow Rate FiO2 02/07/17 17:12 37.7 85 16 116/65 93 Room Air 02/06/17 04:11 2.00 Intake and Output 02/06/17 02/06/17 02/07/17 Cumulative From/Thru 15:00 23:00 07:00 02/05/17 16:00 - 02/07/17 06:52 Intake Total 1814 ml 0 ml 4698 ml Output Total 200 ml 350 ml 200 ml 1100 ml Balance -200 ml 1464 ml -200 ml 3598 ml Intake Oral 0 ml 0 ml 0 ml IV Total 1814 ml 4698 ml Output Urine Total 200 ml 350 ml 200 ml 1100 ml # Voids 4 # Bowel Movements 1 2 General: Alert, Cooperative, No Acute Distress Head: Normal Eyes: Scleral Anicteric Mouth: Mucous Membr Moist/[place] Neck: Supple Chest & Lungs: Chest Wall Normal, Clear to auscultation & percussion Cardiovascular: Regular Rate/Rhythm Abdomen: Tender (at right upper and mid-epigastric arean. no rebound/guarding) , Non-distended, Normoactive bowel tones, Soft Extremities: No cyanosis/clubbing/edma bilat Neurological: Grossly Neurologically Intact, Normal Speech IVs and Medications Medications Reviewed: Medications were reviewed in detail Lab and Diagnostics Result Diagram: 02/07/17 0550 02/07/17 0550 X-Rays, CTs and MRIs CT ABDOMEN AND PELVIS WITH CONTRAST IMPRESSION: 1. Mild peripancreatic fat stranding suspicious for acute pancreatitis. 2. Hepatosplenomegaly and hepatic steatosis. Note: The preliminary [facility] interpretation and the final report are concordant. Dictated by: Juliana Rincon M.D. on 02/05/2017 at 21:23 Approved by: Juliana Rincon M.D. on 02/05/2017 at 21:27 Assessment & Plan 52-year-old female with a history of diabetes mellitus type 2, morbid obesity, and GERD who presented to the ED with the complaint of worsening abdominal pain. # Suspected acute pancreatitis based on CT but with normal Lipase, present on admission, active. -Patient had a cholecystectomy 10 years ago, denies any alcohol or illicit drug use -Triglycerides are elevated at 192 -Continue IV fluids -Patient is nothing by mouth -Pain control -Gastroenterology consulted today. will followup with recommendations. Tentative plan is for EGD later today. # Lactic acidosis, present on admission. (Resolved) -Most likely secondary to the acute pancreatitis # Transaminitis, unknown chronicity, present on admission. (Resolving) -Continue to monitor # Acute hyponatremia present on admission. Resolved. -Continue to monitor # Acute hypomagnesemia present on admission. Resolved. -Follow up # Acute hypokalemia. not present on admission. -Replete and followup. # Diabetes type II, chronic, stable -Hemoglobin A1c 8.1 -Metformin and glyburide are held -Continue insulin sliding scale for nothing by mouth we will make dose adjustments as patient restarts eating # History of bipolar disease and anxiety chronic and stable -Continue home medications Dispo: 1-2 days pending above GI workup GI Prophylaxis: Proton Pump Inhibitor VTE Prophylaxis: Sub-Q Heparin (Unfractionated) VTE Mechanical Devices: Intermittant Pneumatic CD Resuscitation Status: CPR: Attempt Resuscitation Rian Rodarte Feb 07, 2017 17:47
--- NOTE | 2017-02-07 17:48 | PCM.ENDEGD ---
EGD Date of Service: Feb 07, 2017 Physician Isiah Palomo MD Pre Procedure Diagnosis: Abdominal pain Post Procedure Dx & Findings: Gastritis possibly fungus in the esophagus Procedure Esophagogastroduodenoscopy PROCEDURE IN DETAIL: After proper sedation, Olympus video endoscope was inserted into patient's mouth and esophagus was successfully intubated. Scope introduced esophagus. Esophagus showed normal shiny whitish mucosa consistent with squamous cell component. However in the midesophagus, there are whitish material possibly due to fungus. Z line was intact at 40 cm cm from the incisors. Stomach further events to the stomach. The entire stomach showed atrophy redness and edema with blunted rugae folds. Biopsies were done from proximal stomach to the distal stomach. Cardia fundus body antrum pylorus were all visualized. Retroflexion was done. Stomach was easily inflated and deflatable using air. Scope further events to the distal duodenum. Duodenum revealed normal villous structures with normal appearing folds without any mass ulcer erosion. Impression Possible fungal esophagitis Gastritis Recommendation Await biopsy PPI Presedation Assessment Risks and Benefits Informed consent was obtained from the patient after all risks and benefits including but not limited to drug reaction, infection, pain, bleeding, perforation, as well as alternatives were discussed. Patient monitoring Continuous pulse oximetry, cardiac monitoring, blood pressure monitoring, IV access, and oxygen at 2L per nasal cannula. Complications There were no periprocedural complications identified. Post Procedure Plan Post Procedure Recommendations 1. Restrict activities today. 2. Resume normal activities in the morning. 3. Resume medications. 4. GERD behavioral modification: - Avoid fatty, acidic, spicy, large meals - Do not lie down after meals - Do not eat or drink anything for at least 2 1/2 hours before going to bed at night - Discontinue tobacco and alcohol - Decrease or avoid caffeine - Avoid chocolate and mints - Decrease weight - Avoid aspirin and non steroidal anti-inflammatory agents (NSAID) such as Aleve, Advil, Mobic, Naproxen, Ibuprofen, etc 5. Add proton pump inhibitor. Take 30 minutes before 1st meal of the day. 6. Patient informed of normal post procedure side effects as bloating, drowsiness, blood streaking in the stool 7. If gastric biopsy reveal H.pylori, continue with appropriate treatment 8. If small bowel biopsy reveals celiac, continue with appropriate treatment 9. Please don't hesitate to call me with any questions Karl Cortez MD Feb 07, 2017 17:48
--- NOTE | 2017-02-07 17:51 | PCM.ANEP1 ---
Post Anesthesia Phase 1 PACU Phase 1 Assessment Date of Service: Feb 07, 2017 Vital Signs 117/75, 88, 91%, 16 Vital Signs Date Time Temp Pulse Resp B/P Pulse Ox O2 Delivery O2 Flow Rate FiO2 02/07/17 17:12 37.7 85 16 116/65 93 Room Air 02/07/17 16:37 37.1 86 16 91/60 96 Room Air 02/07/17 12:24 36.8 84 104/71 Room Air Anesthetic Administered: GA Level of Alertness: Awake, talking DASH's with Equal Strength: Yes Pain: No Pain Scale Score: 0 Nausea or Vomiting: No Oxygen Delivery: Room Air Lungs: Clear to Auscultation Dermatome Level: Full Sensation Summary EASY SEDATION Roderick Hoover MD Feb 07, 2017 17:51
--- NOTE | 2017-02-07 17:52 | PCM.ANEP2 ---
Post Anesthesia Evaluation ASA/CMS Post Anesthesia VS in Patient's Normal Range?: Yes Resp Stable; Airway Patent?: Yes CV Function & Hydration Stable: Yes Mental Status Recovered?: Yes Pain control Satisfactory?: Yes N/V Control Satisfactory?: Yes Roderick Hoover MD Feb 07, 2017 17:52
--- NOTE | 2017-02-07 20:10 | DRSVH ---
PROCEDURE: US ABDOMEN, LIMITED ([id number]) INDICATIONS: right upper abdominal pain. elevated LFTs TECHNIQUE: Real-time focused scanning was performed of the abdomen, with image documentation. COMPARISON: None. FINDINGS: Liver is enlarged. There is coarse increased echogenicity. There is no focal liver lesion. Liver length is 20.9 cm. Gallbladder surgically absent. No intrahepatic ductal dilatation seen. IMPRESSION: Hepatomegaly and echogenic hepatic echotexture suggesting diffuse hepatocellular disease/ fatty infiltration. Please correlate clinically and with LFTs. Status post cholecystectomy. Dictated by: Moody Deng M.D. on 02/07/2017 at 20:07 Approved by: Moody Deng M.D. on 02/07/2017 at 20:08
--- NOTE | 2017-02-07 20:50 | DRSVH ---
PROCEDURE: MR ABDOMEN MRCP INDICATIONS: abd pain TECHNIQUE: Coronal HASTE through the abdomen, axial 2-D FLASH in- and [id number], and breath-hold T2 FSE with fat saturation through the biliary system and pancreas. Oblique coronal and axial thin-slice HASTE, radial thick-slab HASTE centered on the extrahepatic bile ducts. Intravenous secretin: Not requested. COMPARISON: [facility], US, ABDOMEN LTD, 02/07/2017, 19:22. [facility], CT, CT ABD PELVIS W CON, 02/05/2017, 20:02. FINDINGS: Image quality: Suboptimal due to body habitus and associated noise artifact Pancreas and biliary system: Intra- and extra-hepatic biliary ducts are non dilated. Pancreas is no rmal in morphology, without adjacent soft tissue edema. Pancreatic duct is normal in caliber, withou t developmental anomalies. Gallbladder surgically absent. Other solid organs: Liver is enlarged. The spleen is also enlarged.. No adrenal nodules. Both kidne ys are normal in size, without hydronephrosis. Nodes and vessels: No retroperitoneal or mesenteric adenopathy by size criteria. Aorta and inferior vena cava are normal in size. Bowel and peritoneum: Unenhanced bowel loops are normal in caliber. No free fluid. Lung bases: No basal pleural effusions. Heart size is normal. Bones and soft tissues: No ventral hernias. Bone marrow is of normal overall signal. IMPRESSION: Hepatosplenomegaly as before. Status post cholecystectomy. No definite no biliary ductal dilatation. No intraluminal abnormality however limited evaluation give n body habitus Dictated by: Moody Deng M.D. on 02/07/2017 at 20:42 Approved by: Moody Deng M.D. on 02/07/2017 at 20:47
[2017-02-07] MEDS: risperiDONE 1 mg Tablet PO SCH (21:00)
[2017-02-08] MEDS: Heparin 5,000 Unit/mL Inj SUBQ SCH ×3 (01:00→16:16)
[2017-02-08] MEDS: HYDROmorphone 1 mg/mL Inj IVPUSH PRN ×6 (01:00→20:31)
[2017-02-08] MEDS: 0.9% Sodium Chloride 1,000 ML IV SCH ×5 (03:30→20:31)
[2017-02-08] MEDS: LORazepam 1 mg Tablet PO PRN ×2 (03:36→20:31)
--- NOTE | 2017-02-08 05:27 | NUR ---
DARK URINE Pt slept most of the night getting up to urinate with very dark cloudy urine with threads in it. Changed hat and advised pt to call when she urinates again so we could get a UA
[2017-02-08 06:10] VITALS: BP 135/66; PULSE 92; RESP 20; O2SAT 94
[2017-02-08 06:51] LABS: Mean Corpuscular Hemoglobin 26.8 pg (27.0-35.0); Mean Corpuscular Volume 88.2 fL (81-100)
[2017-02-08 06:59] LABS: INR 1.04 ratio
[2017-02-08 07:39] VITALS: BP 97/55; PULSE 85; RESP 16; O2SAT 93
[2017-02-08] MEDS: Pantoprazole 40 mg ER24 Tablet PO SCH (07:51)
[2017-02-08] MEDS: ARIPiprazole 10 mg Tablet PO SCH (07:51)
[2017-02-08] MEDS: lamoTRIgine 100 mg Tablet PO SCH (07:51)
[2017-02-08] MEDS: Insulin LISPRO 300 Unit/3 mL Inj SUBQ SCH ×4 (07:54→22:00)
[2017-02-08 08:09] LABS: Bilirubin, Direct 0.2 mg/dL (0.0-0.3)
--- NOTE | 2017-02-08 11:01 | DRSVH ---
PROCEDURE: MRI ABDOMEN WITH AND WITHOUT CONTRAST ([id number]) INDICATIONS: Pancreatitis TECHNIQUE: Coronal HASTE, axial 2D FLASH in- and [id number]; axial breath-hold T2 FSE with fat saturation from the hepatic dome to the iliac crests. Oblique coronal thin-slice and radial thick slab HASTE throug h the biliary system. Dynamic axial VIBE during administration of contrast. Post-contrast coronal V JERE or 2D FLASH with fat saturation from the hepatic dome to the iliac crests. Optional diffusion we ighted imaging and ADC may be performed. COMPARISON: [facility], US, ABDOMEN LTD, 02/07/2017, 19:22. [facility], MR, MR ABD MRCP, 02/07/2017, 19:59. [facility], CT, CT ABD PELVIS W CON, 02/05/2017, 20:02. FINDINGS: Image quality: Excellent. Pancreas and biliary system: Pancreas is normal in morphology and demonstrates homogeneous enhancemen t. There is no pancreatic duct dilation. The common bile duct measures 8.3 mm in maximum diameter. Mi ld "shouldering" at ampulla may be secondary to edema, impacted stone, or mass. There is a small fill ing defect in the left hepatic duct, suggesting a small stone. Solid organs: Liver and spleen are enlarged and demonstrate normal enhancement. There is periportal edema. Diffuse hepatic fatty effusion is present. Gallbladder is surgically absent. No adrenal nodu les. Kidneys are normal in size and enhancement, without hydronephrosis. Nodes and vessels: No retroperitoneal or mesenteric adenopathy by size criteria. Aorta and inferior vena cava are normal in size. Bowel and peritoneum: Unenhanced bowel loops are normal in caliber throughout. No free fluid. Lung bases: No basal pleural effusions. Heart size is normal. Bones and soft tissues: No ventral hernias. Bone marrow is normal in overall signal. IMPRESSION: 1. No pancreatic necrosis, pancreatic duct dilation or pancreatic pseudocysts. 2. Hepatosplenomegaly. 3. Cholecystectomy. 4. The common bile duct is prominent measuring 8.3 mm. There is "shouldering" at the ampulla, which m ay be caused by edema, impacted stone or mass. A small filling defect in the left hepatic duct is not ed, suggesting a small stone. If clinically indicated, ERCP may be obtained for further evaluation. Dictated by: Brooklyn Sousa M.D. on 02/08/2017 at 10:49 Transcribed by: DEWAYNE on 02/08/2017 at 11:00 Approved by: Brooklyn Sousa M.D. on 02/08/2017 at 21:41
--- NOTE | 2017-02-08 11:28 | NUR ---
Social work Note Initial assessment Jessie Barrios is a 52 yr old admitted for acute pancreatitis. EMR reviewed: Pt has Medicare and DS. Her PCP is Dr Alfonso. Readmit score is 4 - high. See attached CM initial assessment. MOTOR ROUTE CARRIER met with pt - introduced d/c planning and explained SW role. Pt lives at home with room mates in [place]. She is on disability and is open with [facility] - States her [facility] worker is Suy[place] - MOTOR ROUTE CARRIER asked [facility] Specialist to fax clinicals. Pt has no hx of SNF or HH at this time - states that she uses a walker at home for long distances. She plans to return home with help from her son. No LTC insurance or VA benefits. Pt identifies that she is weak, MOTOR ROUTE CARRIER explored Home Health - Pt declined at this time. Pt does not have a DPOA - MOT[employer] ROUTE CARRIER provided paperwork and pt state she will fill it out after talking with her son. Pt denies any needs - states that her son will pick her up. Plan: Home with family in [facility] and [facility] caregivers. ADELINA Burrell Addendum: 02/08/17 at 1138 by BARON KINGSLEY SS Amended: Links added.
[2017-02-08 11:55] VITALS: BP 117/73; PULSE 84; RESP 16; O2SAT 89
--- NOTE | 2017-02-08 13:07 | NUR ---
Social Work: Discharge Data: Pt is on day 3 of hospitalization. D/C orders are in. No d/c planning needs identified at this time. RETAIL KEY HOLDER will continue to follow if needs arise. Assessment: Pt who has MARV. Plan: Pt will d/c home via POV today with MARV. No d/c planning needs identified at this time. RETAIL KEY HOLDER will continue to follow if needs arise. FREDO Moore
--- NOTE | 2017-02-08 14:23 | NUR ---
Faxed clinicals to [facility] per P[employer]ER HELPER
--- NOTE | 2017-02-08 14:39 | NUR ---
took over patient care [id number]
--- NOTE | 2017-02-08 14:45 | PCM.PNMED ---
Subjective Date of Service Feb 08, 2017 Subjective GASTROENTEROLOGY PROGRESSIVE NOTE: Patient reports 6/10 RUQ abdominal pain, but states that it is overall better. She is hungry and wants a normal diet for lunch. She has been passing gas but no BM yet. She denies any nausea or vomiting. She is anxious to find out why she has this abdominal pain. No other complaint at this point. Exam Vital Signs Vital Sign - Last Date Time Temp Pulse Resp B/P Pulse Ox O2 Delivery O2 Flow Rate FiO2 02/08/17 11:55 36.9 84 16 117/73 89 Room Air 02/06/17 04:11 2.00 Intake and Output 02/07/17 02/07/17 02/08/17 Cumulative From/Thru 15:00 23:00 07:00 02/05/17 16:00 - 02/08/17 06:46 Intake Total 2997 ml 1769 ml 2338 ml 63931 ml Output Total 600 ml 701 ml 2401 ml Balance 2997 ml 1169 ml 1637 ml 9401 ml Intake Oral 400 ml 400 ml 800 ml IV Total 2997 ml 1369 ml 1938 ml 55481 ml Output Urine Total 600 ml 700 ml 2400 ml Emesis 1 ml 1 ml # Voids 4 # Bowel Movements 2 Exam Gen: Obese, well-appearing female lying comfortably on the bed, cooperative, in no acute distress. HEENT: Normocephalic, atraumatic. PERRLA, no scleral icterus, oropharynx appears normal with moist mucosa Neck: Non-tender, no JVD/bruits or lymphadenopathy Cardiac: RRR with no murmurs, rubs or gallops appreciated Pulmonary: Clear to auscultation bilaterally with no crackles, wheezes, or rhonchi. Normal respiratory effort with no use of accessory muscles. Abd: Obese, soft, non-distended, moderate tenderness to palpation in RUQ, no rebound or guarding. Midline epigastric bulge consistent with known incisional hernia. Ext: No clubbing, cyanosis, edema, or lymphadenopathy appreciated. Skin: Normal temperature, turgor, and texture; no rash, ulcers, or subcutaneous nodules appreciated. Neuro: Cranial nerves grossly intact. Normal muscle strength, tone, and bulk. Reflexes, coordination, and sensory function within normal limits. No known gait impairment. Psych: Normal mood and affect. Alert and oriented to person, place, and time. IVs and Medications Medications Reviewed: Medications were reviewed in detail Lab and Diagnostics Result Diagram: 02/08/17 0600 02/08/17 0600 X-Rays, CTs and MRIs CT ABDOMEN AND PELVIS WITH CONTRAST IMPRESSION: 1. Mild peripancreatic fat stranding suspicious for acute pancreatitis. 2. Hepatosplenomegaly and hepatic steatosis. Note: The preliminary [facility] interpretation and the final report are concordant. Dictated by: Juliana Rincon M.D. on 02/05/2017 at 21:23 Approved by: Juliana Rincon M.D. on 02/05/2017 at 21:27 PROCEDURE: MR ABDOMEN MRCP IMPRESSION: Hepatosplenomegaly as before. Status post cholecystectomy. No definite no biliary ductal dilatation. No intraluminal abnormality however limited evaluation given body habitus Dictated by: Moody Deng M.D. on 02/07/2017 at 20:42 Approved by: Moody Deng M.D. on 02/07/2017 at 20:47 PROCEDURE: MRI ABDOMEN WITH AND WITHOUT CONTRAST INDICATIONS: Pancreatitis IMPRESSION: 1. No pancreatic necrosis, pancreatic duct dilation or hepatic pseudocyst. 2. Hepatosplenomegaly. 3. Cholecystectomy. 4. The common bile duct is prominent measuring 8.3 mm. There is "shouldering" at the ampulla, which may be caused by edema, impacted stone or mass. A small filling defect in the left hepatic duct is noted, suggesting a small stone. Recommend ERCP for further evaluation. Dictated by: Brooklyn Sousa M.D. on 02/08/2017 at 10:49 Transcribed by: DEWAYNE on 02/08/2017 at 11:00 Assessment & Plan 52-year-old super obese woman with history of GERD, hepatic steatosis, DM, and bipolar disorder who presented to the ED with 2-day history of RUQ abdominal pain, nausea, and vomiting. She was found to have mild perpancreatic fat stranding on CT that is suspicious for acute pancreatitis. GI service was consulted for the acute pancreatitis, transaminitis, and RUQ abdominal pain. EGD 02/07/2017 Impression -Possible fungal esophagitis s/p biopsy -Gastritis Assessments: 1. Acute RUQ pain, possibly secondary to acute pancreatitis and biliary obstruction. 2. Gastritis 3. Possible fungal esophagitis, biopsy result pending. 4. GERD, acute on chronic. 5. Hepatic steatosis, chronic. Plans: - Patient met the pancreatitis diagnosis with CT findings and RUQ/epigastric abdominal pain although her lipase is normal. - Etiology is likely due to biliary blockage at the left hepatic duct and elevated triglycerides (192). - MRCP 02/07/17 showed no definite biliary ductal dilatation and normal pancreas. However, MRI abd with contrast today showed that the common bile duct is prominent measuring 8.3 mm. There is "shouldering" at the ampulla, which may be caused by edema, impacted stone or mass. A small filling defect in the left hepatic duct is noted, suggesting a small stone. Recommend ERCP for further evaluation. - We do not have coverage for ERCP at this point. Therefore, we recommend to transfer the patient to a tertiary center for ERCP. - Continue Pantoprazole to 40mg daily for better control of the GERD. - Once her pancreatitis improves, we suggest repeating MRI with and without contrast of the pancreas in 4 weeks after discharge. Consider a gastric emptying study as outpatient as well. - Patient should do the screening colonoscopy as outpatient with Dr. Long as scheduled. I saw and examined the patient with the resident. Agree with above. Thank you for the consultation. Please contact us if you have any questions or concerns. Pain Evaluation: Adequate Pain Control GI Prophylaxis: Proton Pump Inhibitor VTE Prophylaxis: Sub-Q Heparin (Unfractionated) VTE Mechanical Devices: Intermittant Pneumatic CD Resuscitation Status: CPR: Attempt Resuscitation Jessica Liao DO Feb 08, 2017 14:45 Karl Cortez MD Feb 10, 2017 09:17
--- NOTE | 2017-02-08 15:26 | NUR ---
NUTRITION ASSESSMENT: ASSESS: 52YO F admit with pancreatitis--LFT's trending down, gastritis and possible fungal esophagitis--biopsies pending. Pt diet advanced today, pt reports abdominal pain and c/o hunger. PMHX: DM,hepatic steatosis,GERD DIET: Heart Healthy Diabetic LABS: Alb 3.1, Glu 196, Ca 7.5 MEDS: Reviewed GI: 1 BM 02/07 WEIGHT: 139.5kg BMI: 581. EST.NEEDS: OBESITY (25-30 kcal/kg adjbw/1.2-1.5g/kg IBW pro) Kcal: 2688-9309 Pro: 60-70g NUTRITION DIAGNOSIS: (1) Inadequate oral intake related to pancreatitis/gastritis as evidenced by NPO x 3 days status. INTERVENTION: (1) Add supplement to meal trays. MONITOR/EVALUATE: PO intake, lab values, GI status. F/U per moderate risk.
[2017-02-08 16:56] VITALS: BP 102/62; PULSE 80; RESP 16; O2SAT 89
--- NOTE | 2017-02-08 17:29 | PCM.PNMED ---
Subjective Date of Service Feb 08, 2017 Subjective reports continued midepigastric and right upper abdominal pain. nausea but no vomiting. denies any other new issues/complaints. no diarrhea. Exam Vital Signs Vital Sign - Last Date Time Temp Pulse Resp B/P Pulse Ox O2 Delivery O2 Flow Rate FiO2 02/08/17 16:56 37.7 80 16 102/62 89 Room Air 02/06/17 04:11 2.00 Intake and Output 02/07/17 02/07/17 02/08/17 Cumulative From/Thru 15:00 23:00 07:00 02/05/17 16:00 - 02/08/17 06:46 Intake Total 2997 ml 1769 ml 2338 ml 65831 ml Output Total 600 ml 701 ml 2401 ml Balance 2997 ml 1169 ml 1637 ml 9401 ml Intake Oral 400 ml 400 ml 800 ml IV Total 2997 ml 1369 ml 1938 ml 32788 ml Output Urine Total 600 ml 700 ml 2400 ml Emesis 1 ml 1 ml # Voids 4 # Bowel Movements 2 Exam General: Alert, Cooperative, No Acute Distress Head: Normal Eyes: Scleral Anicteric Mouth: Mucous Membr Moist/[place] Neck: Supple Chest & Lungs: Chest Wall Normal, Clear to auscultation bilat Cardiovascular: Regular Rate/Rhythm Abdomen: Tender (at right upper and mid-epigastric area. no rebound/guarding), Non-distended, Normoactive bowel tones, Soft Extremities: No cyanosis/clubbing/edema bilat Neurological: Grossly Neurologically Intact, Normal Speech IVs and Medications Medications Reviewed: Medications were reviewed in detail Lab and Diagnostics Result Diagram: 02/08/17 0600 02/08/17 0600 X-Rays, CTs and MRIs CT ABDOMEN AND PELVIS WITH CONTRAST IMPRESSION: 1. Mild peripancreatic fat stranding suspicious for acute pancreatitis. 2. Hepatosplenomegaly and hepatic steatosis. Note: The preliminary [facility] interpretation and the final report are concordant. Dictated by: Juliana Rincon M.D. on 02/05/2017 at 21:23 Approved by: Juliana Rincon M.D. on 02/05/2017 at 21:27 PROCEDURE: MR ABDOMEN MRCP IMPRESSION: Hepatosplenomegaly as before. Status post cholecystectomy. No definite no biliary ductal dilatation. No intraluminal abnormality however limited evaluation given body habitus Dictated by: Moody Deng M.D. on 02/07/2017 at 20:42 Approved by: Moody Deng M.D. on 02/07/2017 at 20:47 PROCEDURE: MRI ABDOMEN WITH AND WITHOUT CONTRAST INDICATIONS: Pancreatitis IMPRESSION: 1. No pancreatic necrosis, pancreatic duct dilation or hepatic pseudocyst. 2. Hepatosplenomegaly. 3. Cholecystectomy. 4. The common bile duct is prominent measuring 8.3 mm. There is "shouldering" at the ampulla, which may be caused by edema, impacted stone or mass. A small filling defect in the left hepatic duct is noted, suggesting a small stone. Recommend ERCP for further evaluation. Dictated by: Brooklyn Sousa M.D. on 02/08/2017 at 10:49 Transcribed by: DEWAYNE on 02/08/2017 at 11:00 Date of Service: 02/07/17 1918 PROCEDURE: MR ABDOMEN MRCP IMPRESSION: Hepatosplenomegaly as before. Status post cholecystectomy. No definite no biliary ductal dilatation. No intraluminal abnormality however limited evaluation given body habitus Dictated by: Moody Deng M.D. on 02/07/2017 at 20:42 Approved by: Moody Deng M.D. on 02/07/2017 at 20:47 Date of Service: 02/08/17 0859 PROCEDURE: MRI ABDOMEN WITH AND WITHOUT CONTRAST ([id number]) IMPRESSION: 1. No pancreatic necrosis, pancreatic duct dilation or hepatic pseudocyst. 2. Hepatosplenomegaly. 3. Cholecystectomy. 4. The common bile duct is prominent measuring 8.3 mm. There is "shouldering" at the ampulla, which may be caused by edema, impacted stone or mass. A small filling defect in the left hepatic duct is noted, suggesting a small stone. Recommend ERCP for further evaluation. Dictated by: Brooklyn Sousa M.D. on 02/08/2017 at 10:49 Transcribed by: DEWAYNE on 02/08/2017 at 11:00 Assessment & Plan 52-year-old female with a history of diabetes mellitus type 2, morbid obesity, and GERD who presented to the ED with the complaint of worsening abdominal pain. # Suspected acute pancreatitis based on CT but with normal Lipase, present on admission, active. -Patient had a cholecystectomy 10 years ago, denies any alcohol or illicit drug use -Triglycerides are elevated at 192 -Continue IV fluids -Patient is nothing by mouth -Pain control -Appreciate Gastroenterology consult. will followup with recommendations. -EGD 02/07/2017 Impression: Possible fungal esophagitis s/p biopsy. Gastritis -? need for ERCP given MR findings. will followup # Lactic acidosis, present on admission. (Resolved) -Most likely secondary to the acute pancreatitis # Transaminitis, unknown chronicity, present on admission. (Resolving) -Continue to monitor # Acute hyponatremia present on admission. Resolved. -Continue to monitor # Acute hypomagnesemia present on admission. Resolved. -Follow up # Acute hypokalemia. not present on admission. -Replete and followup. # Diabetes type II, chronic, stable -Hemoglobin A1c 8.1 -Metformin and glyburide are held -Continue insulin sliding scale for nothing by mouth we will make dose adjustments as patient restarts eating # History of bipolar disease and anxiety chronic and stable -Continue home medications Dispo: 1-2 days pending above GI workup GI Prophylaxis: Proton Pump Inhibitor VTE Prophylaxis: Sub-Q Heparin (Unfractionated) VTE Mechanical Devices: Intermittant Pneumatic CD Resuscitation Status: CPR: Attempt Resuscitation Rian Rodarte Feb 08, 2017 17:29
--- NOTE | 2017-02-08 17:49 | NUR ---
ERCP P- Patient requiring ERCP for Dx of stone. No time slots for ERCP until Sunday 02/11. I- Patient made NPO, MD made aware. E-MD making arrangements to have patient transferred to [place] vs [place] to have ERCP. NEURO- LOC X[facility]- 98/55 PLUM-RA GI-NPO BG 170-200 -Dark tea color UA sent PAIN- IVP Dilaudid 1mg Q4 for 6/10 URQ abdominal pain IV-NS 200 PLAN- See above note
[2017-02-08] MEDS: risperiDONE 1 mg Tablet PO SCH (20:30)
[2017-02-08 20:45] VITALS: BP 116/68; PULSE 86; RESP 18; O2SAT 89
[2017-02-09] MEDS: HYDROmorphone 1 mg/mL Inj IVPUSH PRN ×4 (01:45→12:46)
[2017-02-09] MEDS: 0.9% Sodium Chloride 1,000 ML IV SCH ×3 (01:45→11:14)
[2017-02-09] MEDS: Heparin 5,000 Unit/mL Inj SUBQ SCH ×2 (01:45→09:59)
[2017-02-09] MEDS: LORazepam 1 mg Tablet PO PRN (05:46)
[2017-02-09 06:05] VITALS: BP 93/54; PULSE 89; RESP 18; O2SAT 91
[2017-02-09 08:31] VITALS: BP 105/65; PULSE 88; RESP 20; O2SAT 93
[2017-02-09] MEDS: Pantoprazole 40 mg ER24 Tablet PO SCH (09:56)
[2017-02-09] MEDS: ARIPiprazole 10 mg Tablet PO SCH (09:57)
[2017-02-09] MEDS: lamoTRIgine 100 mg Tablet PO SCH (09:58)
[2017-02-09] MEDS: Insulin LISPRO 300 Unit/3 mL Inj SUBQ SCH ×2 (10:42→11:55)
[2017-02-09] MEDS ORDERED: Piperacillin-Tazo 3.375 Gm Inj 3.375 GM in Dextrose 5% Minibag Plus 50 ML IV ONE (10:45)
--- NOTE | 2017-02-09 10:56 | PCM.DC.MED ---
Discharge Summary Date of Service Feb 09, 2017 Dates of Hospitalization Date of Hospital Admission Feb 05, 2017 at 23:42 Date of Discharge: Feb 09, 2017 Providers: Admitting Physician: Isiah Palomo MD Primary Care Physician: Ml Alfonso MD Attending Physician: Isiah Palomo MD Diagnosis at Time of Discharge Diagnosis at Time of Discharge # Suspected acute pancreatitis on admission based on CT but with normal Lipase. Clinically seems less likely # Possible acute bile duct infection and early cholangitis. # Post esophagogastroduodenoscopy (EGD) on 02/07/2017 with finding of " possible fungal esophagitis post biopsy. Gastritis" # Prominent common bile duct measuring 8.3 mm based on abdominal MRI on 02/08/17 , also showing: "There is "shouldering" at the ampulla, which may be caused by edema, impacted stone or mass. A small filling defect in the left hepatic duct is noted, suggesting a small stone." # Post cholecystectomy in 2001 # Acute lactic acidosis, present on admission. Resolved # Acute transaminitis, unknown chronicity, present on admission. Resolving. # Acute hyponatremia present on admission. Resolved. # Acute hypomagnesemia present on admission. Resolved. # Acute hypokalemia. not present on admission. Resolved. # Diabetes type II, chronic, stable -Hemoglobin A1c 8.1 # History of bipolar disease and anxiety. Stable Procedures XRay, CTs & MRIs CT ABDOMEN AND PELVIS WITH CONTRAST IMPRESSION: 1. Mild peripancreatic fat stranding suspicious for acute pancreatitis. 2. Hepatosplenomegaly and hepatic steatosis. Note: The preliminary [facility] interpretation and the final report are concordant. Dictated by: Juliana Rincon M.D. on 02/05/2017 at 21:23 Approved by: Juliana Rincon M.D. on 02/05/2017 at 21:27 PROCEDURE: MR ABDOMEN MRCP IMPRESSION: Hepatosplenomegaly as before. Status post cholecystectomy. No definite no biliary ductal dilatation. No intraluminal abnormality however limited evaluation given body habitus Dictated by: Moody Deng M.D. on 02/07/2017 at 20:42 Approved by: Moody Deng M.D. on 02/07/2017 at 20:47 PROCEDURE: MRI ABDOMEN WITH AND WITHOUT CONTRAST INDICATIONS: Pancreatitis IMPRESSION: 1. No pancreatic necrosis, pancreatic duct dilation or hepatic pseudocyst. 2. Hepatosplenomegaly. 3. Cholecystectomy. 4. The common bile duct is prominent measuring 8.3 mm. There is "shouldering" at the ampulla, which may be caused by edema, impacted stone or mass. A small filling defect in the left hepatic duct is noted, suggesting a small stone. Recommend ERCP for further evaluation. Dictated by: Brooklyn Sousa M.D. on 02/08/2017 at 10:49 Transcribed by: DEWAYNE on 02/08/2017 at 11:00 Date of Service: 02/07/17 1918 PROCEDURE: MR ABDOMEN MRCP IMPRESSION: Hepatosplenomegaly as before. Status post cholecystectomy. No definite no biliary ductal dilatation. No intraluminal abnormality however limited evaluation given body habitus Dictated by: Moody Deng M.D. on 02/07/2017 at 20:42 Approved by: Moody Deng M.D. on 02/07/2017 at 20:47 Date of Service: 02/08/17 0859 PROCEDURE: MRI ABDOMEN WITH AND WITHOUT CONTRAST ([id number]) IMPRESSION: 1. No pancreatic necrosis, pancreatic duct dilation or hepatic pseudocyst. 2. Hepatosplenomegaly. 3. Cholecystectomy. 4. The common bile duct is prominent measuring 8.3 mm. There is "shouldering" at the ampulla, which may be caused by edema, impacted stone or mass. A small filling defect in the left hepatic duct is noted, suggesting a small stone. Recommend ERCP for further evaluation. Dictated by: Brooklyn Sousa M.D. on 02/08/2017 at 10:49 Transcribed by: DEWAYNE on 02/08/2017 at 11:00 Invasive Procedures EGD Date of Service: Feb 07, 2017 Physician Isiah Palomo MD Pre Procedure Diagnosis: Abdominal pain Post Procedure Dx & Findings: Gastritis possibly fungus in the esophagus Procedure Esophagogastroduodenoscopy PROCEDURE IN DETAIL: After proper sedation, Olympus video endoscope was inserted into patient's mouth and esophagus was successfully intubated. Scope introduced esophagus. Esophagus showed normal shiny whitish mucosa consistent with squamous cell component. However in the midesophagus, there are whitish material possibly due to fungus. Z line was intact at 40 cm cm from the incisors. Stomach further events to the stomach. The entire stomach showed atrophy redness and edema with blunted rugae folds. Biopsies were done from proximal stomach to the distal stomach. Cardia fundus body antrum pylorus were all visualized. Retroflexion was done. Stomach was easily inflated and deflatable using air. Scope further events to the distal duodenum. Duodenum revealed normal villous structures with normal appearing folds without any mass ulcer erosion. Impression Possible fungal esophagitis Gastritis Recommendation Await biopsy PPI Presedation Assessment Risks and Benefits Informed consent was obtained from the patient after all risks and benefits including but not limited to drug reaction, infection, pain, bleeding, perforation, as well as alternatives were discussed. Patient monitoring Continuous pulse oximetry, cardiac monitoring, blood pressure monitoring, IV access, and oxygen at 2L per nasal cannula. Complications There were no periprocedural complications identified. Post Procedure Plan Post Procedure Recommendations 1. Restrict activities today. 2. Resume normal activities in the morning. 3. Resume medications. 4. GERD behavioral modification: - Avoid fatty, acidic, spicy, large meals - Do not lie down after meals - Do not eat or drink anything for at least 2 1/2 hours before going to bed at night - Discontinue tobacco and alcohol - Decrease or avoid caffeine - Avoid chocolate and mints - Decrease weight - Avoid aspirin and non steroidal anti-inflammatory agents (NSAID) such as Aleve, Advil, Mobic, Naproxen, Ibuprofen, etc 5. Add proton pump inhibitor. Take 30 minutes before 1st meal of the day. 6. Patient informed of normal post procedure side effects as bloating, drowsiness, blood streaking in the stool 7. If gastric biopsy reveal H.pylori, continue with appropriate treatment 8. If small bowel biopsy reveals celiac, continue with appropriate treatment 9. Please don't hesitate to call me with any questions Karl Cortez MD Feb 07, 2017 17:48 <Electronically signed by Karl Cortez MD> 02/07/[id number] Report status: Signed Transcribed by: AARON 02/07/[id number] REPORT#: [id number] cc: Karl Cortez MD; Isiah Palomo MD; Ml Alfonso MD Brief History As noted in H&P by Dr. Brunson: Patient is a 52 y/o female with a history of diabetes mellitus type 2, morbid obesity, bipolar disorder and GERD who presented to the ED with the complaint of abdominal pain for the past couple of days. Associated symptoms include nausea, vomiting and severe unrelenting RUQ abdominal pain since last night. She states that she has never had anything like this before but the pain is similar to the pain she experienced with her hernia. She denies alcohol or illicit drug use. She does report eating a marijuana cookie several days ago but this was the first time in years and she states that she did not enjoy it. Additionally, she reports anxiety about her need for admission and would really like to know what is causing this. She states that she recently was diagnosed with hernia and evaluated by a surgeon, whose name she does not remember, who advised bariatric consult prior to having her hernia repaired. The patient states that she has lost 40lbs recently and is trying to lose weight without bariatric surgery. She denies fever, chills, chest pain, palpitations or shortness of breath. She states that she has not been able to eat anything for the past couple of days because eating and drinking seems to exacerbate her symptoms. She denies any alleviating factors and describes the pain as severe with radiation to her RUQ. Of note she is s/p cholecystectomy approximately 10 years ago without complications. In the ED, vitals 37.4, BP 127/83, HR 96, RR 12, SpO2 95% on room air. Labs: Lipase 12, WBC 8.1, H/H 13.9/43.3, plts 197, sodium 131, potassium 4.1, chloride 94, bicarb 19, BUN 14, creatinine 0.74, serum glucose 280, lactic acid 2.7, calcium 8.6, magnesium 1.4, AST/ALT 81/85, alk phos 98, total bili 0.7. Urinalysis with no signs of infection. ECG showing sinus rhythm, no acute ischemic changes and similar to prior EKG. CT abdomen and pelvis wild mild peripancreatic fat stranding suspicious for acute pancreatitis and hepatosplenomegaly as well as hepatic steatosis. Hospital Course # Suspected acute pancreatitis based on CT but with normal Lipase, present on admission, clinically seems less likely now. -Patient had a cholecystectomy 10 years ago, denies any alcohol or illicit drug use -Triglycerides are elevated at 192 -Gastroenterology consulted. -EGD 02/07/2017 Impression: Possible fungal esophagitis s/p biopsy. Gastritis -MR Abdomen on 02/08 showing normal pancreas and "The common bile duct is prominent measuring 8.3 mm. There is "shouldering" at the ampulla, which may be caused by edema, impacted stone or mass. A small filling defect in the left hepatic duct is noted, suggesting a small stone. If clinically indicated, ERCP may be obtained for further evaluation." -Unfortunately unable to do ERCP at our hospital. Patient wishes to be followed at [place] instead of [place] for further ERCP and workup. Discussed with Dr. Liao at [facility] who graciously agrees to accept patient for transfer. -On violent crimes detective of 02/09/17 patient had a low grade fever of 38.1 (currently afebrile). Blood cultures x 2 will be obtained now and she will receive a dose of IV Zosyn prior to transfer (per discussion with Dr. Liao). # Lactic acidosis, present on admission. Resolved # Transaminitis, unknown chronicity, present on admission. Resolving # Acute hyponatremia present on admission. Resolved. # Acute hypomagnesemia present on admission. Resolved. # Acute hypokalemia. not present on admission. Resolved. # Diabetes type II, chronic, stable -Hemoglobin A1c 8.1 -Metformin and glyburide on hold during this hospital # History of bipolar disease and anxiety chronic and stable by day of discharge continues to report mid-epigastric to right upper abdominal pain. On exam abdomen continues to remain mildly tender on the right upper abdomen without rebound or guarding. abdomen is otherwise soft, not distended with + bowel tones. Lungs CTA bilaterally. Exam Vital Signs (Last) Date Time Temp Pulse Resp B/P Pulse Ox O2 Delivery O2 Flow Rate FiO2 02/09/17 08:31 36.9 88 105/65 93 Room Air 02/09/17 06:05 18 02/06/17 04:11 2.00 Test 02/05/17 17:00 02/05/17 17:47 02/06/17 02:14 02/07/17 05:50 Hemoglobin A1c 8.1% (4.8-5.6) Triglycerides Level 192mg/dL (0-149) Cholesterol Level 184mg/dL (100-199) LDL Cholesterol, Calculated 113.600mg/dL (0-99) VLDL Cholesterol 38.400mg/dL HDL Cholesterol 32mg/dL (>39) Cholesterol/HDL Ratio 5.75 (0.0-4.4) Hold Allan Top Tube Received (Received) Urine Color Dark yellow (YELLOW) Urine Appearance Hazy (CLEAR,HAZY) Urine pH 5.5 (5.0-8.0) Urine Specific [place] 1.020 (1.003-1.035) Urine Protein Tracemg/dL (NEG,TRACE) Urine Glucose (UA) 100mg/dL (NEGATIVE) Urine Ketones Negativemg/dL (NEGATIVE) Urine Occult Blood Negative (NEGATIVE) Urine Nitrite Negative (NEGATIVE) Urine Bilirubin Negative (NEGATIVE) Urine Urobilinogen Normalmg/dL (NORMAL) Urine Leukocyte Esterase Negative (NEGATIVE) Urine RBC 0-2/hpf (0-2) Urine WBC 0-5/hpf (0-5) Urine Epithelial Cells Many/hpf (NONE-MOD) Urine Crystals None seen (NONE SEEN) Urine Bacteria Few/hpf (NONE-FEW) Urine Hyaline Casts None/lpf (NONE) Urine Granular Casts None seen (NONE SEEN) Urine Waxy Casts None seen (NONE SEEN) Urine Red Blood Cell Casts None seen (NONE SEEN) Urine White Blood Cell Casts None seen (NONE SEEN) Urine Mucus None seen (None Seen) Urine Trichomonas None seen (NONE SEEN) Urine Yeast None (NONE SEEN) Urinalysis Comment Nn Urine Culture Reflexed Not indicated Neutrophils (%) (Auto) 67.3% (40-74) Lymphocytes (%) (Auto) 26.7% (14-46) Monocytes (%) (Auto) 5.0% (4-12) Eosinophils (%) (Auto) 0.2% (0-5) Basophils (%) (Auto) 0.3% (0-3) Lactic Acid Level 1.3mmol/L (0.4-2.0) Magnesium Level 2.0mg/dL (1.6-2.6) Test 02/07/17 08:32 02/08/17 06:00 02/08/17 12:51 Ionized Calcium 0.99mmol/L (1.17-1.32) Lipase 16U/L (13-60) White Blood Count 5.1th/mm3 (3.8-10.1) Red Blood Count 3.55mil/mm3 (3.90-5.20) Hemoglobin 9.5g/dL (12.0-15.6) Hematocrit 31.3% (35.0-46.0) Mean Corpuscular Volume 88.2fL (81-100) Mean Corpuscular Hemoglobin 26.8pg (27.0-35.0) Mean Corpuscular Hemoglobin Concent 30.4% (32.0-37.0) Red Cell Distribution Width 14.8% (12.3-15.4) Platelet Count 138bil/L (150-400) Prothrombin Time 11.1sec (8.1-12.5) Prothromb Time International Ratio 1.04ratio Activated Partial Thromboplast Time 27.8sec (22.8-33.0) Sodium Level 138mEq/L (134-144) Potassium Level 3.8mEq/L (3.5-5.2) Chloride Level 105mEq/L (97-108) Carbon Dioxide Level 22mmol/L (18-29) Blood Urea Nitrogen 5mg/dL (6-24) Creatinine 0.66mg/dL (0.57-1.00) Estimat Glomerular Filtration Rate 136mL/min (>59) Glucose Level 196mg/dL (60-99) Calcium Level 7.5mg/dL (8.5-10.1) Total Bilirubin 0.4mg/dL (0.0-1.2) Direct Bilirubin 0.2mg/dL (0.0-0.3) Aspartate Amino Transf (AST/SGOT) 29U/L (0-50) Alanine Aminotransferase (ALT/SGPT) 39U/L (0-32) Alkaline Phosphatase 69U/L (25-150) Total Protein 5.5g/dL (6.4-8.4) Albumin 3.1g/dL (3.4-5.0) Hold Urine Received (Received) Discharge Medications Discharge Medications Aripiprazole (Aripiprazole) 10 Mg Tablet 10 MG PO QAM (Reported) Benztropine Mesylate (Benztropine Mesylate) 1 Mg Tablet 1 MG PO BID (Reported) Doxepin (Doxepin) 150 Mg Capsule 150 MG PO HS (Reported) Gabapentin (Gabapentin) 300 Mg Capsule 600 MG PO TID (Reported) Glimepiride (Glimepiride) 1 Mg Tablet 1 MG PO DAILYWM (Reported) Lamotrigine (Lamictal) 150 Mg Tablet 150 MG PO QAM (Reported) Lorazepam (Lorazepam) 2 Mg Tablet 1 MG PO QID (Reported) Lovastatin (Lovastatin) 20 Mg Tablet 20 MG PO HS (Reported) Metformin (Glucophage) 1,000 Mg Tablet 1,000 MG PO BIDWM (Reported) Mirtazapine (Mirtazapine) 45 Mg Tablet 45 MG PO HS (Reported) Omeprazole (Omeprazole) 20 Mg Capsule.dr 20 MG PO QAM (Reported) Prazosin (Prazosin) 1 Mg Capsule 1 MG PO HS (Reported) Ranitidine (Ranitidine) 150 Mg Capsule 150 MG PO HS (Reported) Risperidone (Risperidone) 1 Mg Tablet 1 MG PO HS (Reported) Followup Plan Disposition: Transfer to [facility] in [place] Follow-up Provider: Ml Alfonso MD, Masoud Feb 09, 2017 10:56
--- NOTE | 2017-02-09 11:11 | PCM.DIMED ---
Discharge Instructions Date of Service Feb 09, 2017 Dates of Hospitalization Feb 05, 2017 at 23:42 Discharge Diagnosis Discharge Diagnosis # Suspected acute pancreatitis on admission based on CT but with normal Lipase. Clinically seems less likely # Possible acute bile duct infection and early cholangitis. # Post esophagogastroduodenoscopy (EGD) on 02/07/2017 with finding of " possible fungal esophagitis post biopsy. Gastritis" # Prominent common bile duct measuring 8.3 mm based on abdominal MRI on 02/08/17 , also showing: "There is "shouldering" at the ampulla, which may be caused by edema, impacted stone or mass. A small filling defect in the left hepatic duct is noted, suggesting a small stone." # Post cholecystectomy in 2001 # Acute lactic acidosis, present on admission. Resolved # Acute transaminitis, unknown chronicity, present on admission. Resolving. # Acute hyponatremia present on admission. Resolved. # Acute hypomagnesemia present on admission. Resolved. # Acute hypokalemia. not present on admission. Resolved. # Diabetes type II, chronic, stable -Hemoglobin A1c 8.1 # History of bipolar disease and anxiety. Stable Medication Instructions # Suspected acute pancreatitis on admission based on CT but with normal Lipase. Clinically seems less likely # Possible acute bile duct infection and early cholangitis. # Post esophagogastroduodenoscopy (EGD) on 02/07/2017 with finding of " possible fungal esophagitis post biopsy. Gastritis" # Prominent common bile duct measuring 8.3 mm based on abdominal MRI on 02/08/17 , also showing: "There is "shouldering" at the ampulla, which may be caused by edema, impacted stone or mass. A small filling defect in the left hepatic duct is noted, suggesting a small stone." # Post cholecystectomy in 2001 # Acute lactic acidosis, present on admission. Resolved # Acute transaminitis, unknown chronicity, present on admission. Resolving. # Acute hyponatremia present on admission. Resolved. # Acute hypomagnesemia present on admission. Resolved. # Acute hypokalemia. not present on admission. Resolved. # Diabetes type II, chronic, stable -Hemoglobin A1c 8.1 # History of bipolar disease and anxiety. Stable Patient Instructions Follow-up Provider: Ml Alfonso MD, Masoud Feb 09, 2017 11:11
[2017-02-09 12:00] VITALS: BP 107/56; PULSE 76; RESP 20; O2SAT 87
[2017-02-09 12:12] VITALS: BP 82/58; PULSE 82; O2SAT 95
--- NOTE | 2017-02-09 12:47 | NUR ---
Social Work: Discharge Data: Pt is on day 4 of hospitalization. BOILER HELPER informed pt did not d/c yesterday. Pt is being transferred today. No further d/c planning needs. BOILER HELPER will continue to follow if needs arise. Assessment: Pt who is independent at baseline. Plan: Pt will transfer to another hospital today. No further d/c planning needs. BOILER HELPER will continue to follow if needs arise. FREDO Moore
[2017-02-09] MEDS ORDERED: Propofol 10,000 mCg/mL 20 mL Inj ONE (12:49)
[2017-02-09] MEDS ORDERED: fentaNYL-PF 50 mCg/mL 2 mL Inj ONE (12:49)
--- NOTE | 2017-02-09 12:53 | NUR ---
student note P: Patient admitted for acute pancreatitis. Patient complains of abdominal pain 6/10 right upper quadrant I: Iv fluids and antibiotics per order, 1 mg/ml of Dilaudid Q4h, follow I & O, NPO, transfer to [facility] for ERCP for diagnosis of stone E:Report given to Verónica PEREZ at [facility], vitals within baseline, pain controlled with Dilaudid
--- NOTE | 2017-02-11 10:38 | PATH ---
SURGICAL PATHOLOGY Attending Physician:Karl Cortez M.D. CASE STATUS: Signed Out PATIENT NAME: ARTHUR ARMSTRNOG PID: [id number] : 1965 DATE COLLECTED:02/07/2017 00:00 SPECIMEN: Gastric, Biopsy CLINICAL HISTORY: 1). GASTRIC BIOPSY FINAL DIAGNOSIS: Gastric Biopsy: Antral and body-type mucosa with mild chronic gastritis and focal changes of reactive gastropathy. Negative for intestinal metaplasia. Negative for dysplasia and malignancy. No definite H. pylori organisms identified by H&E stain. Immunohistochemistry studies pending; results will be reported as an addendum. ICD10: K29.7 GROSS DESCRIPTION: The specimen is received in one formalin filled container labeled with the patient's name, sublabeled "gastric" and consists of 4 portions of tissue which aggregate to 0.3 x 0.3 x 0.3 CM. The specimen is entirely submitted in one cassette. 02/08/2017 [facility] ICD-9 CODES: CPT CODES: 1: 99942, 17546, 66675, 22899 <CR> PROCEDURE/ADDENDA: Addendum SPI Addendum Diagnosis IMMUNOHISTOCHEMISTRY: Block 1A Negative for H. pylori organisms. * This test was developed and its performance characteristics determined by [employer] It has not been cleared or approved by the U.S. Food and Drug Administration. The FDA has determined that such clearance or approval is not necessary. This test is used for clinical purposes. It should not be regarded as investigational or for research. Addendum Comment 1). Gastric Biopsy: Negative for H. pylori organisms by immunohistochemistry studies. Electronically Signed Out Batool Queen MD Electronically Signed Out Batool Queen MD [facility] Pathology [facility], [place] [address] Technical component performed at [facility], [address] [place] [address] Ave[address], [place], [address]
== END 2017-02-09 12:50 | disposition short-term general hospital (02) | DRG 445 ==
LOC: SED 15:44 → OFED 23:42 → MPC 02-06 12:49
PROVIDERS: ADMIT Hospitalist; ATTEND Hospitalist
PROC: 0DB68ZX Excision of Stomach, Via Natural or Artificial Opening Endoscopic, Diagnostic (ICD-10-PCS; principal; 2017-02-07 16:00)
DX: K80.33 Calculus of bile duct with acute cholangitis with obstruction (principal); E87.2 Acidosis; E87.1 Hypo-osmolality and hyponatremia; Z68.43 Body mass index [BMI] 50.0-59.9, adult; E11.9 Type 2 diabetes mellitus without complications; K21.9 Gastro-esophageal reflux disease without esophagitis; E66.01 Morbid (severe) obesity due to excess calories; F17.210 Nicotine dependence, cigarettes, uncomplicated; F31.9 Bipolar disorder, unspecified; K29.70 Gastritis, unspecified, without bleeding; K20.8 Other esophagitis; E83.42 Hypomagnesemia; E78.1 Pure hyperglyceridemia; E87.6 Hypokalemia; Z79.4 Long term (current) use of insulin

== ENCOUNTER 2017-02-13 10:17 | Inpatient (IN) | payer MEDICARE, MEDICAID ==
[~2017-02-13] VITALS: Ht 180.3 cm; Wt 134.0 kg
[2017-02-13] VITALS (9 sets, daily range): BP systolic 128–165; BP diastolic 67–109; PULSE 71–96; RESP 16–24; O2SAT 93–98
[~2017-02-13 10:17] MED LIST changes: +ARIP10TA16 PO; -DOXE100C4 PO; +DOXE150C7 PO; +GLIM1TAB PO; -LORA1TAB PO; +LORA2TAB PO; +LOVA20TA PO; +MIRT45TA5 PO
--- NOTE | 2017-02-13 10:27 | ED.REPORT ---
HPI-Dyspnea / Wheezing Date of Service Feb 13, 2017 ED Provider: Dr. Abad A 52 year old female with a history of diabetes, pancreatitis, and cholelithiasis presents to the ED complaining of SOB onset last night that was worse this morning. recently hospitalised for pancreatitis and stent placement, discharged 4 days ago from [facility]. She has never experienced breathing symptoms like this in the past. Associated symptoms include tingling sensation in throat that is causing a cough, and bilateral leg swelling. Nursing Notes Stated Complaint: TROUBLE BREATHING,TIGHT CHEST Chief Complaint: Respiratory Distress Nursing Notes Reviewed: Yes Allergies: Coded Allergies: zolpidem (Verified Adverse Reaction, Severe, AMNESIA X 1 WEEK, [facility]ED [facility] THE HOSPITAL, 02/05/17) Scheduled Benztropine Mesylate (Benztropine Mesylate) 1 Mg Tablet 1 MG PO BID Doxepin (Doxepin) 150 Mg Capsule 150 MG PO HS Gabapentin (Gabapentin) 300 Mg Capsule 600 MG PO TID Glimepiride (Glimepiride) 1 Mg Tablet 1 MG PO DAILYWM Lorazepam (Lorazepam) 2 Mg Tablet 1 MG PO QID Lovastatin (Lovastatin) 20 Mg Tablet 20 MG PO HS Metformin (Glucophage) 1,000 Mg Tablet 1,000 MG PO BIDWM Omeprazole (Omeprazole) 20 Mg Capsule.dr 20 MG PO QAM Prazosin (Prazosin) 1 Mg Capsule 1 MG PO HS Ranitidine (Ranitidine) 150 Mg Capsule 150 MG PO HS Scheduled PRN Ondansetron ODT (Ondansetron ODT) 4 Mg Tab.rapdis 4 MG PO QID PRN PRN For Nausea General Time Seen by MD: 10:27 Chief Complaint Shortness of breath Hx Obtained From: Patient Arrived By: Walk-in Onset Occurred: Yesterday (last night) Symptom Duration: Since onset Severity: Current: Moderate Severity: Maximum: Moderate Recent Healthcare: Recent doctor visit Similar Sx Previous: No Risk Factors Well's Criteria for PE Clin suspicion of DVT (3), Most likely due to PE (3), Immob/surg past 4wk (1.5) Well's PE Score: >6 pts (high risk 66%) Past Medical History Past Medical History Pancreatitis Gastritis polyps cholelithiasis Denies Hx of blood clots Umbilical hernia, diagnosed 3 weeks ago. Reports no known allergies. 1. Depression 2. Anterior mediastinal mass 3. Chronic lower extremity edema 4. Arthritis 5. Bipolar disorder 6. Anxiety disorder 7. Nicotinic dependence 8. Morbid obesity No known medication allergies. Reports: Diabetes mellitus, GERD, Hypertension, Denies: Congestive heart failure, Coronary artery disease Past Surgical History Pancreas stent placement just days ago at [facility] laminectomy Reports: Cholecystectomy, Hysterectomy Smoking History Former Smoker Social History Alcohol Use: "Social" Drug Use: Denies drug use Other Social History: Good social support, Local resident Ambulatory Status Independent Review of Systems Ears / Nose / Throat: Reports: Throat pain (tickling sensation in throat) Respiratory: Reports: Non-productive cough, Shortness of breath Musculoskeletal: Reports: Extremity swelling (bilateral leg swelling.) Complete sys rev & neg: except as marked. Physical Exam Initial Vital Signs Vital Signs (First) Date Time Temp Pulse Resp B/P Pulse Ox O2 Delivery O2 Flow Rate FiO2 02/13/17 10:22 36.5 79 24 146/90 98 Nasal Cannula 2 Initial VS: Reviewed General/Constitutional: Awake, Alert Neck: Atraumatic, Full range of motion Respiratory / Chest: No rales, No rhonchi Diminished Breath Sounds: Positive: Decreased R (Decreased breath sounds in right lung base, but no rales or rhonci.) Cardiovascular: Heart rate NL, Regular rhythm, Heart sounds NL, No gallop, No murmurs, No rubs 1+ peripheral edema. ENT: Atraumatic, Mucous membranes moist Abdomen: No guarding, No rebound Skin: Atraumatic, Color NL, Warm, Dry Neurologic: Oriented X3, Speech NL Head / Eyes: Atraumatic, Normocephalic, PERRL, EOMI Interpretation & Diagnostics Lab Results Interpretation Result Diagram: 02/13/17 1025 02/13/17 1814 Test 02/13/17 10:25 02/13/17 12:45 White Blood Count 4.8th/mm3 (3.8-10.1) Red Blood Count 3.98mil/mm3 (3.90-5.20) Hemoglobin 10.8g/dL (12.0-15.6) Hematocrit 35.1% (35.0-46.0) Mean Corpuscular Volume 88.2fL (81-100) Mean Corpuscular Hemoglobin 27.1pg (27.0-35.0) Mean Corpuscular Hemoglobin Concent 30.8% (32.0-37.0) Red Cell Distribution Width 15.2% (12.3-15.4) Platelet Count 233bil/L (150-400) Neutrophils (%) (Auto) 64.8% (40-74) Lymphocytes (%) (Auto) 25.2% (14-46) Monocytes (%) (Auto) 5.0% (4-12) Eosinophils (%) (Auto) 1.9% (0-5) Basophils (%) (Auto) 0.4% (0-3) Prothrombin Time 10.7sec (8.1-12.5) Prothromb Time International Ratio 1.00ratio Pro-B-Type Natriuretic Peptide 1270pg/mL (0-249) Lipase 15U/L (13-60) Hold Allan Top Tube Received (Received) Urine Color Straw (YELLOW) Urine Appearance Clear (CLEAR,HAZY) Urine pH 6.0 (5.0-8.0) Urine Specific [place] 1.015 (1.003-1.035) Urine Protein Negativemg/dL (NEG,TRACE) Urine Glucose (UA) Negativemg/dL (NEGATIVE) Urine Ketones Negativemg/dL (NEGATIVE) Urine Occult Blood Negative (NEGATIVE) Urine Nitrite Negative (NEGATIVE) Urine Bilirubin Negative (NEGATIVE) Urine Urobilinogen Normalmg/dL (NORMAL) Urine Leukocyte Esterase Negative (NEGATIVE) Urine RBC 0-2/hpf (0-2) Urine WBC 0-5/hpf (0-5) Urine Epithelial Cells Occasional/hpf (NONE-MOD) Urine Crystals None seen (NONE SEEN) Urine Bacteria None/hpf (NONE-FEW) Urine Hyaline Casts None/lpf (NONE) Urine Granular Casts None seen (NONE SEEN) Urine Waxy Casts None seen (NONE SEEN) Urine Red Blood Cell Casts None seen (NONE SEEN) Urine White Blood Cell Casts None seen (NONE SEEN) Urine Mucus None seen (None Seen) Urine Trichomonas None seen (NONE SEEN) Urine Yeast Moderate (NONE SEEN) Urinalysis Comment None Urine Culture Reflexed Not indicated Urine Opiates Screen Negative Urine Methadone Screen Negative Urine Barbiturates Screen Negative Urine Amphetamines Screen Negative Urine Benzodiazepines Screen Negative Urine Cocaine Metabolite Screen Negative Urine Cannabinoids Screen Negative Lab Results Interpretation: PROCEDURE: CT ANGIO CHEST PULMONARY EMBOLISM ([id number]) IMPRESSION: 1. No evidence of pulmonary emboli. 2. Small to moderate-sized bilateral pleural effusions (right greater than left) with corresponding atelectasis. Superimposed pneumonia is difficult to exclude, particularly at the right lung base given mild bronchial wall thickening. Please correlate clinically. 3. Unchanged pulmonary nodules are compatible with a benign process given lack of significant change since 2013. 4. Mild enlargement of the spleen and liver. There is mild ascites within the upper abdomen. Please correlate clinically for the possibility of cirrhosis or chronic liver disease. 5. Previously seen mediastinal hematoma has resolved in the interim. Dictated by: Hiram Rojo M.D. on 02/13/2017 at 11:24 Approved by: Hiram Rojo M.D. on 02/13/2017 at 11:34 ECG Interpretation ECG Interpretation: Rate is 75. Sinus rhythm. Time: 10:42 Interpreted by: ED physician Re-Eval/Medical Decision Med Decision/Clinical Course Symptoms most consistent with fluid overload. VS wnl, but pt. looks ill and feel breathless. Will admit for sx. control with diuretics and see how she responds. Source of Hx: Old records Re-Evaluation/Progress : Time of Eval: 13:01 Re-Evaluation/Progress Note: Rechecked patient and explained test results. Patient reports that she has pain in the right side of her back which is similar to pancreatitis. Explained plan for admission. Patient understands and agrees with the plan. All questions addressed. Consultation : Referral / Consult Name: Margareth Dupont MD Call Returned at: 13:51 Adapted Physical Education Aide: Agrees with eval, Agrees with plan, Accepts admit Note: Discussed patient case with Dr. Dupont who accepts patient admit. Counseled Regarding: Diagnosis, Lab results, Need for follow-up, Need for admission Discharge & Departure Impression: Primary Impression: Acute CHF Disposition: ADMITTED TO HOSPITAL Discharge Condition All VS Reviewed: Yes Condition: Stable Referrals: Ml Alfonso MD (PCP) Maurice Attestation Portions of this note were transcribed by Jose Roberto Lopez. I, Dr. Abad personally performed the history, physical exam and medical decision-making; I reviewed and confirmed the accuracy of the information in the transcribed note. Signed by: Maurice Hector, 02/13/2017, [id number]. copies to: Ml Alfonso MD, Kirk H MD Feb 13, 2017 10:27 Jose Roberto Lopez Feb 13, 2017 10:33 Lab Results Interpretation: PROCEDURE: CT ANGIO CHEST PULMONARY EMBOLISM ([id number]) IMPRESSION: 1. No evidence of pulmonary emboli. 2. Small to moderate-sized bilateral pleural effusions (right greater than left) with corresponding atelectasis. Superimposed pneumonia is difficult to exclude, particularly at the right lung base given mild bronchial wall thickening. Please correlate clinically. 3. Unchanged pulmonary nodules are compatible with a benign process given lack of significant change since 2013. 4. Mild enlargement of the spleen and liver. There is mild ascites within the upper abdomen. Please correlate clinically for the possibility of cirrhosis or chronic liver disease. 5. Previously seen mediastinal hematoma has resolved in the interim. Dictated by: Hiram Rojo M.D. on 02/13/2017 at 11:24 Approved by: Hiram Rojo M.D. on 02/13/2017 at 11:34 ECG Interpretation ECG Interpretation: Rate is 75. Sinus rhythm. Time: 10:42 Interpreted by: ED physician Re-Eval/Medical Decision Source of Hx: Old records Re-Evaluation/Progress : Time of Eval: 13:01 Re-Evaluation/Progress Note: Rechecked patient and explained test results. Patient reports that she has pain in the right side of her back which is similar to pancreatitis. Explained plan for admission. Patient understands and agrees with the plan. All questions addressed. Consultation : Referral / Consult Name: Margareth Dupont MD Call Returned at: 13:51 Adapted Physical Education Aide: Agrees with eval, Agrees with plan, Accepts admit Note: Discussed patient case with Dr. Dupont who accepts patient admit. Counseled Regarding: Diagnosis, Lab results, Need for follow-up, Need for admission Discharge & Departure Impression: Primary Impression: Acute CHF Disposition: ADMITTED TO HOSPITAL Discharge Condition All VS Reviewed: Yes Condition: Stable Referrals: Ml Alfonso MD (PCP) Maurice Attestation Portions of this note were transcribed by Jose Roberto Lopez. I, Dr. Abad personally performed the history, physical exam and medical decision-making; I reviewed and confirmed the accuracy of the information in the transcribed note. Signed by: Maurice Hector, 02/13/2017, [id number]. copies to: Ml Alfonso MD, Kirk H MD Feb 13, 2017 10:27 Jose Roberto Lopez Feb 13, 2017 10:33
[2017-02-13 10:38] LABS: BASOPHILS % (AUTO) 0.4 % (0-3); EOSINOPHILS % (AUTO) 1.9 % (0-5); Mean Corpuscular Hemoglobin 27.1 pg (27.0-35.0); Mean Corpuscular Volume 88.2 fL (81-100); NEUTROPHILS % (AUTO) 64.8 % (40-74); Platelet Count 233 bil/L (150-400)
[2017-02-13 11:07] LABS: TROPONIN T 0.01 ug/L (0.0-0.011)
--- NOTE | 2017-02-13 12:35 | DRSVH ---
PROCEDURE: CT ANGIO CHEST PULMONARY EMBOLISM ([id number]) INDICATIONS: dyspnea TECHNIQUE: After the administration of intravenous contrast, 2 mm thick sections acquired from the pulmonary api jaya to the posterior costophrenic angles. 3-dimensional maximum intensity projection (MIP) coronal a nd sagittal reformats were then acquired through the thorax. For radiation dose reduction, the follo wing was used: automated exposure control, adjustment of mA and/or kV according to patient size. COMPARISON: [facility], CT, CHEST ANGIO-PE, 05/17/2014, 3:00. FINDINGS: Image quality: Excellent. Pulmonary arteries: Pulmonary arteries are normal in size, and demonstrate no intraluminal filling d efects to suggest central pulmonary embolism. Lungs and pleura: Moderate-sized bilateral pleural effusions (right greater than left) are present wi th corresponding atelectasis. Mild prominence of the bronchial meneses is noted within the infrahilar regions (right greater than left). No lung masses are evident. Please note that evaluation for pulm onary nodules on this examination is difficult related to mild respiratory motion and dependent basil ar atelectasis. However, there nodules seen within the anterior margin of the inferior left upper lo be and in the anterior margin of the right middle lobe, and the right lower lobe are unchanged since 2013, compatible with a benign process. Mediastinum: Heart size is normal, without pericardial effusion. No mediastinal or hilar adenopathy . Thoracic aorta is normal in caliber and enhancement. Esophagus is normal in caliber, without hiat al hernia. The previously seen soft tissue density along the anterior mediastinum adjacent to the ao rtic arch anteriorly has essentially resolved in the interim with minimal residual nodularity evident , probably representing mild residual scarring or small lymph nodes. Bones and chest wall: No suspicious bony lesions. Ribs and thoracic spine appear intact throughout. Postoperative changes of the lower cervical spine are not adequately evaluated. The sternum appear s intact. No displaced fractures are evident. Moderate degenerative changes throughout the thoracic spine are noted. Thyroid gland is not enlarged. No axillary or supraclavicular adenopathy. Abdomen: The imaged portions of the upper abdomen demonstrate enlargement of the spleen and liver wit h the liver noted to be hypodense. It may be a small amount of upper abdominal ascites. Small lymph nodes are seen within the imaged portions of the lesser sac near the gastroesophageal junction. IMPRESSION: 1. No evidence of pulmonary emboli. 2. Small to moderate-sized bilateral pleural effusions (right greater than left) with corresponding atelectasis. Superimposed pneumonia is difficult to exclude, particularly at the right lung base giv en mild bronchial wall thickening. Please correlate clinically. 3. Unchanged pulmonary nodules are compatible with a benign process given lack of significant change since 2014. 4. Mild enlargement of the spleen and liver. There is mild ascites within the upper abdomen. Pleas e correlate clinically for the possibility of cirrhosis or chronic liver disease. 5. Previously seen mediastinal hematoma has resolved in the interim. Dictated by: Hiram Rojo M.D. on 02/13/2017 at 11:24 Approved by: Hiram Rojo M.D. on 02/13/2017 at 11:34
[2017-02-13] MEDS ORDERED: Furosemide 10 mg/mL 4 mL Inj IVPUSH ONE (13:10)
[2017-02-13] MEDS ORDERED: 0.9% Sodium Chloride 1,000 ML IV SCH (13:49)
[2017-02-13] MEDS ORDERED: ONDA4TAB12 PO (13:57)
[2017-02-13 13:59] LABS: APPEARANCE,URINE CLEAR (CLEAR,HAZY); COLOR,URINE STRAW (YELLOW)
[2017-02-13 14:00] LABS: OCCULT BLOOD,URINE NEGATIVE (NEGATIVE); UROBILINOGEN,URINE NORMAL (NORMAL); YEAST,URINE MODERATE (NONE SEEN)
[2017-02-13] MEDS ORDERED: Albuterol-Ipratropium 3 mL Inhalation Solution NEB PRN (14:00)
--- NOTE | 2017-02-13 14:53 | PCM.HPMED ---
Subjective Date of Service Feb 13, 2017 Primary Provider: Admitting Physician: Primary Care Physician: Ml Alfonso MD Attending Physician: Chief Complaint: Difficulty breathing History of Present Illness: 52-year-old female with recent hospitalization02/05- with pancreatitis, dilated CBD Morbid obesity, Diabetes mellitus, GERD p/w acute onset difficulty of breathing since last night Patient was [facility] per [facility] recommendation, patient underwent ERCP with biliary stone removal, stent was placed. She will also had colonoscopy, found to have polyps which turned out to be benign. Patient was discharged on stable condition on 02/11, 2days ago. patient stayed at home, mainly stayed at home, didn't notice any abdominal pain , nausea, vomiting, no difficulty breathing at all. Patient slept relatively well without waking up. Yesterday, pt also didn't feel anything different but at night, started having significant shortness of breath, especially when she laid down or when she moved with minimal activities like going to the bathroom, couldn't sleep at all due to difficulty breathing, brought to emergency room by her son. Of note, pt denied any episode of chest pain, never had heart attack in the past. in ED VS BP 140s, HR79, 98% on 2liters and very tachypneic with RR24, noted to be in significant respiratory distress using accessory muscle. CTPE obtained, which showed moderate size bilateral pleural effusion, no PE. no consolidation suggestive of PNA. patient was given 40mg iv lasix. upon interview in ED, pt looked very comfortable, sitting up on the bed, denied SOB, cough, sputum, chest pain, palpitation. ROS: no fever, chills at home, no diarrhea, constipation, no dysuria/frequency, urgency. denied particular sick contact at home after d/c Review of Systems: Pertinent positives as noted in history of present illness. All other systems were reviewed and are negative Allergies Coded Allergies: zolpidem (Verified Adverse Reaction, Severe, AMNESIA X 1 WEEK, L[facility]ED IN THE HOSPITAL, 02/05/17) Home Medications Discharge Medications Aripiprazole (Aripiprazole) 10 Mg Tablet 10 MG PO QAM (Reported) Benztropine Mesylate (Benztropine Mesylate) 1 Mg Tablet 1 MG PO BID (Reported) Doxepin (Doxepin) 150 Mg Capsule 150 MG PO HS (Reported) Gabapentin (Gabapentin) 300 Mg Capsule 600 MG PO TID (Reported) Glimepiride (Glimepiride) 1 Mg Tablet 1 MG PO DAILYWM (Reported) Lamotrigine (Lamictal) 150 Mg Tablet 150 MG PO QAM (Reported) Lorazepam (Lorazepam) 2 Mg Tablet 1 MG PO QID (Reported) Lovastatin (Lovastatin) 20 Mg Tablet 20 MG PO HS (Reported) Metformin (Glucophage) 1,000 Mg Tablet 1,000 MG PO BIDWM (Reported) Mirtazapine (Mirtazapine) 45 Mg Tablet 45 MG PO HS (Reported) Omeprazole (Omeprazole) 20 Mg Capsule.dr 20 MG PO QAM (Reported) Prazosin (Prazosin) 1 Mg Capsule 1 MG PO HS (Reported) Ranitidine (Ranitidine) 150 Mg Capsule 150 MG PO HS (Reported) Risperidone (Risperidone) 1 Mg Tablet 1 MG PO HS (Reported) PMH PMH Umbilical hernia Depression Anterior mediastinal mass Chronic lower extremity edema Arthritis Bipolar disorder Anxiety disorder Nicotinic dependence Morbid obesity Diabetes mellitus GERD Surgical History Laminectomy in 2010 Cervical Fusion of C3-C4 and C5-C6 Right and left wrist surgery Cholecystectomy ALMA with BSO Tubal Ligation Family History Paternal Grandfather - heart attack in 70s Maternal Grandmother - heart attack in late 60s Father - esophageal cancer Mother - Hypertension Social History Hx Alcohol Use: No (once a year) Hx Substance Use: No Hx Tobacco Use: Yes (1 ppd x 20 years quit 2.5yrs ago) Smoking Status: Former Smoker Exam Vital Signs Vital Sign - Last Date Time Temp Pulse Resp B/P Pulse Ox O2 Delivery O2 Flow Rate FiO2 02/13/17 11:35 71 16 165/109 97 Nasal Cannula 2 02/13/17 10:22 36.5 Exam Obese middle-aged female NAD, comfortably laying down on the bed no JVD, MMM, no LAD RRR, nl s1, s2 no mrg decreased BS bibasilar, no wheezing S,ND,NT,normoactive BS+ warm, no edema, pulses 2/2 Lab and Diagnostics Result Diagram: 02/13/17 1025 02/13/17 1025 Assessment & Plan 52-year-old female with recent hospitalization, with pancreatitis , dilated CBD s/p ERCP, Morbid obesity, Diabetes mellitus, GERD p/w acute onset difficulty of breathing since last night acute, active dyspnea, POA, secondary to probable new onset acute CHF with moderate bilateral pleural effusion, free flowing fluid in CT. Primary insult likely is iatrogenic IVF given for recent pancreatitis/probable cholangitis. Patient likely has underlying diastolic dysfunction given body habitus. PE ruled out. ACS unlikely , EKG WNL, first trop neg. No signs of respiratory infection on images, sx despite recent hospitalization. -TTE to assess LV function, valvular dz -telemetry -O2 supplement with SpO2 target>95% -would consider neb tx given hx of smoking, although suspicion is low. -lasix 40mg iv given in ED, will adjust dose, i/o, daily wt. -viral PCR chronic, stable, resume home meds once med recs done Recent pancreatitis, CBD dilatation s/p ERCP, seemed stable, lipase normal, monitor GI sx closely. Depression Anterior mediastinal mass Chronic lower extremity edema Arthritis Bipolar disorder Anxiety disorder former smoker Morbid obesity Diabetes mellitus, will start lisproSS GERD, dispo:Patient will be admitted with inpatient status with expectation of inpatient therapy for more than 2 midnights diet: cardiac, diabetic dvt ppx:LMWH Full COde Time spent 65min Margareth Dupont MD Feb 13, 2017 13:49
[2017-02-13] MEDS ORDERED: Glucose 40% Oral Gel 15 Gm Tube PO PRN (14:55)
--- NOTE | 2017-02-13 15:53 | NUR ---
admission note patient arrived to room 3020. c/o back pain 03/06 described as an ache. states she's had pain since being discharged a couple days ago s/p pancreatitis. states pain level is tolerable. reports [place]. denies SOB at rest. feeling anxious now. continue to get settled and admitted.
[2017-02-13] MEDS: Pantoprazole 40 mg ER24 Tablet PO SCH (17:02)
[2017-02-13] MEDS: LORazepam 1 mg Tablet PO SCH ×2 (17:02→21:24)
[2017-02-13] MEDS: Insulin LISPRO 300 Unit/3 mL Inj SUBQ SCH ×2 (17:30→21:24)
[2017-02-13 19:08] LABS: TROPONIN T < 0.010 ug/L (0.0-0.011)
[2017-02-13] MEDS ORDERED: Potassium Chloride 20 mEq/15 mL 15mL Oral Soln PO ONE (21:10)
[2017-02-14] VITALS (10 sets, daily range): BP systolic 122–136; BP diastolic 67–82; PULSE 75–89; RESP 18–20; O2SAT 92–96
--- NOTE | 2017-02-14 04:12 | NUR ---
NOC shift note Patient slept intermittently, remained on 2L oxygen with NC. Reported back pain 5/10, declined medication, reported pain is tolerable. Slightly anxious- reported that when she coughs, she loses her breath, and then gets anxious. Active listening, assisted with repositioning for comfort. Patient remained alert and oriented, using call light appropriately, steady gait observed. Intentional rounding in place.
[2017-02-14] MEDS: Ondansetron 2 mg/mL 2 mL Inj IVPUSH PRN (04:32)
[2017-02-14] MEDS: Pantoprazole 40 mg ER24 Tablet PO SCH (06:14)
[2017-02-14] MEDS: LORazepam 1 mg Tablet PO SCH ×4 (06:14→20:43)
[2017-02-14 06:28] LABS: BASOPHILS % (AUTO) 0.2 % (0-3); EOSINOPHILS % (AUTO) 2.5 % (0-5); MONOCYTES % (AUTO) 5.7 % (4-12); Mean Corpuscular Hemoglobin 27.2 pg (27.0-35.0); Mean Corpuscular Volume 89.3 fL (81-100); NEUTROPHILS % (AUTO) 58.7 % (40-74); Platelet Count 196 bil/L (150-400)
[2017-02-14 06:35] LABS: Magnesium 1.9 mg/dL (1.6-2.6); Phosphorus 3.6 mg/dL (2.5-4.9)
[2017-02-14] MEDS ORDERED: Furosemide 10 mg/mL 2 mL Inj IVPUSH ONE (07:30)
[2017-02-14] MEDS ORDERED: Potassium Chloride 20 mEq SR Tablet PO ONE (07:35)
[2017-02-14] MEDS ORDERED: Magnesium Sulf 2 Gm/50mL Water 2 GM in IV Premix 1 EACH IV ONE (07:35)
[2017-02-14] MEDS: Insulin LISPRO 300 Unit/3 mL Inj SUBQ SCH ×4 (08:00→22:00)
[2017-02-14] MEDS: Furosemide 10 mg/mL 2 mL Inj IVPUSH SCH ×2 (10:17→16:38)
--- NOTE | 2017-02-14 11:10 | NUR ---
oxygenation Patients Spo2 has been 94-95% on 2L NC. Patient refused to attempt to titrate down on oxygen and stated that she was not ready.
--- NOTE | 2017-02-14 14:52 | PCM.PNMED ---
Subjective Date of Service Feb 14, 2017 Subjective She will stated that she was nauseous throughout the night, vomiting multiple times Controlled from Had diarrhea, yellowish watery very smelly Denied any abdominal pain to smoking Breathing seems little better today has intermittent cough with white sputum, brisk UOP with lasix per pt, net -3750/12hrs yesterday Exam Vital Signs Vital Sign - Last Date Time Temp Pulse Resp B/P Pulse Ox O2 Delivery O2 Flow Rate FiO2 02/14/17 13:28 36.6 75 19 131/67 95 Nasal Cannula 2.00 Intake and Output 02/13/17 02/13/17 02/14/17 Cumulative From/Thru 15:00 23:00 07:00 02/13/17 10:22 - 02/14/17 06:02 Intake Total 400 ml 200 ml 600 ml Output Total 250 ml 3900 ml 800 ml 4950 ml Balance -250 ml -3500 ml -600 ml -4350 ml Intake Oral 400 ml 200 ml 600 ml Output Urine Total 250 ml 3900 ml 800 ml 4950 ml # Voids 1 6 2 9 # Bowel Movements 0 1 1 Exam Obese middle-aged female NAD, comfortably laying down on the bed no JVD, MMM, no LAD RRR, nl s1, s2 no mrg decreased BS bibasilar, no wheezing S,ND,NT,normoactive BS+ warm, no edema, pulses 2/2 IVs and Medications Medications Reviewed: Medications were reviewed in detail Lab and Diagnostics Result Diagram: 02/14/17 0535 02/14/17 0535 Assessment & Plan 52-year-old female with recent hospitalization, with pancreatitis , dilated CBD s/p ERCP, Morbid obesity, Diabetes mellitus, GERD p/w acute onset difficulty of breathing since last night acute, active dyspnea, POA, secondary to probable new onset acute CHF with moderate bilateral pleural effusion, free flowing fluid in CT. Primary insult likely is iatrogenic IVF given for recent pancreatitis/probable cholangitis. Patient likely has underlying diastolic dysfunction given body habitus. PE ruled out. ACS unlikely , EKG WNL, first trop neg. No signs of respiratory infection on images, sx despite recent hospitalization.viral PCR neg -TTE to assess LV function, valvular dz -telemetry -O2 supplement with SpO2 target>95% -would consider neb tx given hx of smoking, although suspicion is low. -lasix 40mg iv given in ED, had -3.7liter out, will try 20mg iv bid today. -added Tessalon Pearls for cough new onset diarrhea, nausea,vomiting, developed 02/13-, stool PCR neg, unlikely infectious. -will monitor sx, electrolytes closely, keep K>4, Mg>2 chronic, stable Recent pancreatitis, CBD dilatation s/p ERCP, seemed stable, lipase normal, monitor GI sx closely. Depression,Bipolar disorder, Anxiety disorder continue home meds: Doxepin, prazosin, Benztropine Anterior mediastinal mass Arthritis, tylenol prn Morbid obesity, not active Diabetes mellitus,continue lisproSS GERD, ranitidine qhs dispo:3-4more days with diuresis diet: cardiac, diabetic dvt ppx:LMWH Full COde Time spent 35 minutes Margareth Dupont MD Feb 14, 2017 14:52
--- NOTE | 2017-02-14 18:13 | NUR ---
cough patient c/o dry non-productive cough that causes 10/10 throat pain. MD notified. Administered Tessalon pearls and pt stated that "they worked really well and took the pain away."
[2017-02-14] MEDS ORDERED: Furosemide 10 mg/mL 2 mL Inj IVPUSH SCH (20:30)
[2017-02-14] MEDS ORDERED: Codeine-guaiFENesin 5 mL Syrup PO ONE (23:55)
[2017-02-15] VITALS (9 sets, daily range): BP systolic 123–135; BP diastolic 76–81; PULSE 68–78; RESP 16–20; O2SAT 92–96
[2017-02-15] MEDS ORDERED: Codeine-guaiFENesin 10 mL Syrup PO ONE (00:25)
[2017-02-15] MEDS: Pantoprazole 40 mg ER24 Tablet PO SCH (06:12)
[2017-02-15] MEDS: Insulin LISPRO 300 Unit/3 mL Inj SUBQ SCH ×4 (08:00→22:00)
[2017-02-15] MEDS ORDERED: Furosemide 10 mg/mL 2 mL Inj IVPUSH SCH (08:30)
[2017-02-15 08:48] LABS: Magnesium 2.1 mg/dL (1.6-2.6); Phosphorus 4.3 mg/dL (2.5-4.9)
[2017-02-15] MEDS: Potassium Chloride 20 mEq SR Tablet PO SCH (10:01)
[2017-02-15] MEDS: LORazepam 1 mg Tablet PO SCH ×4 (10:02→21:16)
--- NOTE | 2017-02-15 10:54 | DRSVH ---
[facility] [address] [place] [address] Echocardiogram Report Name: ARTHUR ARMSTRONG KStudy Date: 01/27 Height: 71 in Hospital Exam Location: [facility] Weight: 330 lb Gender: Female BSA: 2.6 m2 : 1965 Age: 52 yrs BP: 125/76 mmHg Reason For Study: Dyspnea Ordering Physician: HOSPITALIST SVerformed By: Robb Kasper Referring Physician: HALEY MONAE Interpretation Summary The left ventricle is borderline dilated. Left ventricular systolic function is normal without focal wall motion abnormalities. The ejection fraction is estimated to be 60-65%. Assessment of diastolic parameters indicates normal left ventricular diastolic function and normal filling pressures. The right ventricle grossly appears normal in size with probable normal systolic function. The right ventricular systolic pressure is estimated at 43 mmHg assuming a right atrial pressure of 15 mm Hg. Borderline left atrial enlargement. Right atrial size is normal. There is no significant valvular heart disease. The ascending aorta is mildly enlarged. The aortic arch is mildly enlarged. The IVC is dilated (diameter is greater than 2.1 cm) and it collapses less than 50% with a sniff. This suggests a high right atrial pressure of 15 mm Hg. Procedure: A two-dimensional transthoracic echocardiogram with color flow and Doppler was performed. The study quality was technically adequate. A contrast injection of Definity was performed to improve assessment of LV function. Comparison is made with the echocardiogram of 05/17/14. The patient was in normal sinus rhythm during the exam. Left Ventricle: The left ventricle is borderline dilated. Left ventricular wall thickness is at the upper limits of normal. Left ventricular systolic function is normal without focal wall motion abnormalities. The ejection fraction is estimated to be 60-65%. Assessment of diastolic parameters indicates normal left ventricular diastolic function and normal filling pressures. Right Ventricle: The right ventricle grossly appears normal in size with probable normal systolic function. Atria: Borderline left atrial enlargement. Right atrial size is normal. The interatrial septum is intact with no evidence for an atrial septal defect. Mitral Valve: The mitral valve is normal in structure and function. There is trace mitral regurgitation. Aortic Valve: The aortic valve is not well visualized. The aortic valve is grossly normal. No aortic regurgitation is present. Tricuspid Valve: The tricuspid valve is normal. There is trace tricuspid regurgitation. The right ventricular systolic pressure is estimated at 43 mmHg assuming a right atrial pressure of 15 mm Hg. Pulmonic Valve: The pulmonic valve is not well visualized. There is a trace or physiologic amount of pulmonic regurgitation. There is no significant valvular heart disease. Great Vessels: The aortic root is normal size. The ascending aorta is mildly enlarged. The aortic arch is mildly enlarged. The pulmonary artery is normal size. The IVC is dilated (diameter is greater than 2.1 cm) and it collapses less than 50% with a sniff. This suggests a high right atrial pressure of 15 mm Hg. Pericardium/ Pleura There is an anterior echo-free space consistent with a fat pad. There is no pericardial effusion. There is no pleural effusion. MMode/2D Measurements & Calculations LVIDd: 5.8 cm RA long axis LVOT diam: 2.2 cm LVIDs: 4.0 cm LA A2 area: 26.2 cm AoV Opening FS: 31.2 % LA A4 area: 22.0 cm RA area EPSS: 0.55 cm LA length (vol) Ao root diam IVSd: 0.77 cm : 15.5 cm LVPWd: 0.69 cm LA vol: 82.0 ml RA vol asc Aorta Diam LA vol index : 38.0 ml RA Ao Arch Diam (Prox : 14.6 mm2 Trans): 3.5 cm IVC diam: 3.2 cm LV mckeon. diameter/BSA LV sys. diameter/BSA (cm/m^2): 2.2 (cm/m^2): 1.5 Doppler Measurements & Calculations Ao V2 max MV E max mack MV E/A: 1.8 TR max mack : 144.8 cm/sec : 104.7 cm/sec Med Peak E' Mack : 266.2 cm/sec Ao max P.4 mmHg MV A max mack TR max PG Ao mean P.4 mmHg : 58.7 cm/sec E/E' med: 16.3 : 28.3 mmHg LVOT Max Mack Lat Peak E' Mack PA V2 max : 133.7 cm/sec : 112.4 cm/sec E/E' lat: 14.2 PA mean PG NEETU(I,D): 3.5 cm E/e' average : 2.6 mmHg sev ratio: 0.92 MV dec time: 0.14 sec Ao V2 mean LV V1 max PG PA V2 mean : 100.0 cm/sec : 77.3 cm/sec Ao V2 VTI: 31.8 cmLV V1 VTI PA pr(Accel) : 29.3 cm : 22.9 mmHg NEETU(V,D): 3.5 cm2 NEETU indexed to BSA (cm^2/m^2): 1.3 Reading Physician:BRIAN
--- NOTE | 2017-02-15 11:02 | NUR ---
Pain Paged Dr. Dupont regarding pain medication. Tylenol given earlier and patient states her pain is unchanged. Dr. Dupont paged RN back and states he will order Tramadol. RN notified patient.
--- NOTE | 2017-02-15 13:00 | PCM.PNMED ---
Subjective Date of Service Feb 15, 2017 Subjective pt had brisk UOP with lasix 20mg iv bid, net -5.3liters out yesterday feels lot better, denied cough, sputum, Exam Vital Signs Vital Sign - Last Date Time Temp Pulse Resp B/P Pulse Ox O2 Delivery O2 Flow Rate FiO2 02/15/17 12:34 36.9 68 20 135/79 92 Nasal Cannula 2.00 Intake and Output 02/14/17 02/14/17 02/15/17 Cumulative From/Thru 15:00 23:00 07:00 02/13/17 10:22 - 02/15/17 00:51 Intake Total 400 ml 1000 ml Output Total 5100 ml 59524 ml Balance -4700 ml -9050 ml Intake Oral 400 ml 1000 ml Output Urine Total 5100 ml 47298 ml # Voids 4 13 # Bowel Movements 1 Exam Obese middle-aged female NAD, comfortably laying down on the bed no JVD, MMM, no LAD RRR, nl s1, s2 no mrg decreased BS bibasilar, no wheezing S,ND,NT,normoactive BS+ warm, no edema, pulses 2/2 IVs and Medications Medications Reviewed: Medications were reviewed in detail Lab and Diagnostics Result Diagram: 02/14/17 0535 02/15/17 0755 Assessment & Plan 52-year-old female with recent hospitalization02/05-, with pancreatitis , dilated CBD s/p ERCP, Morbid obesity, Diabetes mellitus, GERD p/w acute onset difficulty of breathing since last night acute, active dyspnea, POA, secondary to probable new onset acute CHF with moderate bilateral pleural effusion, free flowing fluid in CT. Primary insult likely is iatrogenic IVF given for recent pancreatitis/probable cholangitis.PE ruled out. ACS unlikely, EKG WNL, first trop neg. No signs of respiratory infection on images, sx despite recent hospitalization.viral PCR neg. TTE 02/15 showed normal EF, normal LV/RV function, no pericardial/pleural effusion, no valvular dz. -telemetry -O2 supplement with SpO2 target>95% -would consider neb tx given hx of smoking, although suspicion is low. -lasix 40mg iv given in ED, had -3.7liter out, switched to 20mg iv bid yesterday still >5liters out, will switch to 20mg daily tomorrow -added Tessalon Pearls for cough new onset diarrhea, nausea,vomiting, developed 02/13-, stool PCR neg, unlikely infectious. -will monitor sx, electrolytes closely, keep K>4, Mg>2 chronic, stable Recent pancreatitis, CBD dilatation s/p ERCP, seemed stable, lipase normal, monitor GI sx closely. Depression,Bipolar disorder, Anxiety disorder continue home meds: Doxepin, prazosin, Benztropine Anterior mediastinal mass Arthritis, tylenol prn Morbid obesity, not active Diabetes mellitus,continue lisproSS GERD, ranitidine qhs dispo:Given normal TTE, likely home tomorrow if po lasix. diet: cardiac, diabetic dvt ppx:LMWH Full COde Time spent 35min Margareth Dupont MD Feb 15, 2017 13:00
--- NOTE | 2017-02-15 14:39 | DRSVH ---
PROCEDURE: X-RAY CHEST, TWO VIEWS ([id number]) INDICATIONS: pleural effusion follow up TECHNIQUE: 2 views of the chest were acquired. COMPARISON: [facility], CR, CHEST 2VW, 09/30/2014, 14:19. [facility], CR, X R CHEST 1VW (PORTABLE), 09/30/2016, 17:42. [facility], CT, CT ANGIO CHEST PE, 02/13/2017, 12:12. FINDINGS: Surgical changes and devices: Lower cervical spine fixation hardware. Lungs and pleura: Small bilateral pleural effusions present with basilar patchy airspace opacity quinn lar to recent CT scan. Lungs otherwise are clear. Mediastinum: Mediastinal contours are normal. Heart size is normal. Bones and chest wall: No suspicious bony abnormalities. Soft tissues appear unremarkable. IMPRESSION: Small effusions and bibasilar opacity likely compressive atelectasis. Continued radiograp hic surveillance to resolution is recommended. Dictated by: Abhilash Kuhn RRA Interpreted: Brooklyn Sousa MD on 02/15/2017 at 14:38 Transcribed by: MURPHY on 02/15/2017 at 14:38 Approved by: Brooklyn Sousa M.D. on 02/15/2017 at 17:42
--- NOTE | 2017-02-15 15:57 | NUR ---
Social work note - Initial Assessment Jessie Jain is a 52 yr old who was admitted for CHF. EMR reviewed: Pt is a readmit - was admitted for pancreatitis and transferred to [facility] for treatment. She was d/c home from [facility] on 02/11. Pt has Medicare and [facility]. Her PCP is Dr Alfonso. No VA benefit, no LTC insurance. Readmit score is high - 5. See attached CM initial assessment. LEAF CONDITIONER met with pt - Pt known from previous admissions. LEAF CONDITIONER explained SW role. Pt lives at home with her son and room mates. Her son is her paid chore provider through [employer]. PT's CM is Suyapa Rosado. LEAF CONDITIONER asked [employer] to fax H&P. Pt gets help with chores, meals, meds and transportation. She has a wheel chair and walker. She states that she plans to return home with son's help. LEAF CONDITIONER explored Home Health - Pt declined stating that her son's help is enough. Pt admits that it is hard to have "strangers come into her son's house". She is considering looking into Senior apartments so her son does not have to care for her in the future. She is aware of community resources. Assessment: Pt would likely benefit from Home Health - high readmit risk - Pt declining at this time. Plan: Home with Son in [facility]. ADELINA Burrell Addendum: 02/15/17 at 1603 by BARON KINGSLEY SS Amended: Links added.
--- NOTE | 2017-02-15 18:45 | NUR ---
End of shift Patient resting in bed, family at bedside. Denies any further needs, call light within reach.
[2017-02-16] VITALS (9 sets, daily range): BP systolic 121–145; BP diastolic 52–86; PULSE 69–87; RESP 12–20; O2SAT 90–97
[2017-02-16 06:31] LABS: Magnesium 2.2 mg/dL (1.6-2.6); Phosphorus 4.5 mg/dL (2.5-4.9)
[2017-02-16] MEDS: Pantoprazole 40 mg ER24 Tablet PO SCH (07:10)
[2017-02-16] MEDS: LORazepam 1 mg Tablet PO SCH ×4 (07:10→21:06)
[2017-02-16] MEDS: Insulin LISPRO 300 Unit/3 mL Inj SUBQ SCH ×4 (08:00→21:07)
[2017-02-16 08:29] LABS: BASOPHILS % (AUTO) 0.5 % (0-3); EOSINOPHILS % (AUTO) 3.4 % (0-5); MONOCYTES % (AUTO) 9.6 % (4-12); Mean Corpuscular Volume 87.3 fL (81-100); NEUTROPHILS % (AUTO) 58.9 % (40-74); Platelet Count 208 bil/L (150-400)
--- NOTE | 2017-02-16 09:05 | NUR ---
CONNER signed FREDO Moore
[2017-02-16] MEDS: Potassium Chloride 20 mEq SR Tablet PO SCH (09:36)
--- NOTE | 2017-02-16 11:16 | PCM.PNMED ---
Subjective Date of Service Feb 16, 2017 Subjective She denies difficulty breathing Complained all 5 out of 10 dull and right lower lumbar pain, radiating to her side, not pleuritic, not sharp, started since she came in after d/c from [facility] tramadol 50mg given yesterday but didn't help much -600cc out net balance Exam Vital Signs Vital Sign - Last Date Time Temp Pulse Resp B/P Pulse Ox O2 Delivery O2 Flow Rate FiO2 02/16/17 09:56 36.8 69 16 126/80 94 Nasal Cannula 2.00 Intake and Output 02/15/17 02/15/17 02/16/17 Cumulative From/Thru 15:00 23:00 07:00 02/13/17 10:22 - 02/16/17 06:57 Intake Total 450 ml 1377 ml 400 ml 3227 ml Output Total 1800 ml 3102 ml 1000 ml 23220 ml Balance -1350 ml -1725 ml -600 ml -92166 ml Intake Oral 450 ml 1287 ml 400 ml 3137 ml IV Total 90 ml 90 ml Output Urine Total 1800 ml 3100 ml 1000 ml 84091 ml Stool Total 2 ml 2 ml # Voids 13 # Bowel Movements 2 1 4 Exam Obese middle-aged female NAD, comfortably laying down on the bed no JVD, MMM, no LAD RRR, nl s1, s2 no mrg decreased BS bibasilar, no wheezing S,ND,NT,normoactive BS+, no RUQ td warm, no edema, pulses 2/2 MSK: tenderness+ on paraspinal Lower lumbar spines IVs and Medications Medications Reviewed: Medications were reviewed in detail Lab and Diagnostics Result Diagram: 02/16/17 0810 02/16/17 0555 Assessment & Plan 52-year-old female with recent hospitalization, with pancreatitis , dilated CBD s/p ERCP, Morbid obesity, Diabetes mellitus, GERD p/w acute onset difficulty of breathing since last night acute, active dyspnea, POA, initially it was thought be from probable new onset acute CHF with moderate bilateral pleural effusion, free flowing fluid in CT. However, TTE 02/15 showed normal EF, normal LV/RV function, no pericardial/pleural effusion, no valvular dz. It is likely that patient developed interstitial fluid from iatrogenic IVF given for recent pancreatitis/probable cholangitis.PE ruled out. ACS unlikely, EKG WNL, first trop neg. No signs of respiratory infection on images, sx despite recent hospitalization.viral PCR neg. -continue telemetry -O2 supplement with SpO2 target>95% -would consider neb tx given hx of smoking, although suspicion is low. -s/p lasix 40mg iv, 20mg iv with brisk UOP, changed to 20mg PO today, -added Tessalon Pearls for cough new onset diarrhea, nausea,vomiting, developed 02/13-, stool PCR neg, unlikely infectious. -will monitor sx, electrolytes closely, keep K>4, Mg>2 Rt lower back pain, flank pain, POA, likely MSK, unlikely pleuritis given nature of pain, small effusion -will try tylenol, tramadol 100mg, naproxen 500 bid -monitor sx, if it gets worse, any signs of PNA, will get US for possible thoracentesis of Rt pleural effusion chronic, stable Recent pancreatitis, CBD dilatation s/p ERCP, seemed stable, lipase normal, monitor GI sx closely. Depression,Bipolar disorder, Anxiety disorder continue home meds: Doxepin, prazosin, Benztropine Anterior mediastinal mass Arthritis, tylenol prn Morbid obesity, not active Diabetes mellitus,continue lisproSS GERD, ranitidine qhs dispo:within 1-2days, home diet: cardiac, diabetic dvt ppx:LMWH Full COde Time spent 35min Margareth Dupont MD Feb 16, 2017 11:16
[2017-02-16] MEDS: Ondansetron 2 mg/mL 2 mL Inj IVPUSH PRN (12:53)
[2017-02-17] VITALS (11 sets, daily range): BP systolic 109–121; BP diastolic 63–77; PULSE 62–99; RESP 16–18; O2SAT 90–93
[2017-02-17] MEDS: Pantoprazole 40 mg ER24 Tablet PO SCH (05:24)
[2017-02-17] MEDS: LORazepam 1 mg Tablet PO SCH ×5 (05:25→21:30)
--- NOTE | 2017-02-17 05:51 | NUR ---
Behavior BORING MACHINE FEEDER reports pt is rambling words and does not make sense, also falling over when getting standing weight. RN checked on pt and pt was able to speak in clear full sentences.
[2017-02-17 05:57] LABS: BASOPHILS % (AUTO) 0.7 % (0-3); EOSINOPHILS % (AUTO) 3.1 % (0-5); MONOCYTES % (AUTO) 7.3 % (4-12); Mean Corpuscular Hemoglobin 26.7 pg (27.0-35.0); Mean Corpuscular Volume 89.3 fL (81-100); NEUTROPHILS % (AUTO) 52.2 % (40-74); Platelet Count 186 bil/L (150-400)
[2017-02-17 06:18] LABS: Phosphorus 4.2 mg/dL (2.5-4.9)
[2017-02-17] MEDS: Insulin LISPRO 300 Unit/3 mL Inj SUBQ SCH ×4 (08:00→20:31)
[2017-02-17] MEDS: Potassium Chloride 20 mEq SR Tablet PO SCH (09:18)
--- NOTE | 2017-02-17 11:25 | PCM.PNMED ---
Subjective Date of Service Feb 17, 2017 Subjective Patient was minimally responsive to 20 mg of oral Lasix increased to 40mg po today back/flank markedly better with tramadol, didn't take Naproxen, so it was stopped has persistent diarrhea, stool PCR neg, KCL supplement stopped today. denied abdominal pain, n,v pt was noted to have intermittent nocturnal hypoxia, denied SOB in the morning Exam Vital Signs Vital Sign - Last Date Time Temp Pulse Resp B/P Pulse Ox O2 Delivery O2 Flow Rate FiO2 02/17/17 10:43 36.5 62 16 110/63 90 Room Air 02/16/17 20:37 2.00 Intake and Output 02/16/17 02/16/17 02/17/17 Cumulative From/Thru 15:00 23:00 07:00 02/13/17 10:22 - 02/17/17 06:11 Intake Total 720 ml 600 ml 4547 ml Output Total 802 ml 450 ml 16164 ml Balance -82 ml 150 ml -51614 ml Intake Oral 720 ml 600 ml 4457 ml IV Total 90 ml Output Urine Total 800 ml 450 ml 43047 ml Stool Total 2 ml 4 ml # Voids 13 # Bowel Movements 4 Exam Obese middle-aged female NAD, comfortably laying down on the bed no JVD, MMM, no LAD RRR, nl s1, s2 no mrg decreased BS bibasilar, no wheezing S,ND,NT,normoactive BS+, no RUQ td warm, no edema, pulses 2/2 MSK: mild tenderness+ on paraspinal Lower lumbar spines IVs and Medications Medications Reviewed: Medications were reviewed in detail Lab and Diagnostics Result Diagram: 02/17/17 0550 02/17/17 0550 Assessment & Plan 52-year-old female with recent hospitalization02/05-, with pancreatitis , dilated CBD s/p ERCP, Morbid obesity, Diabetes mellitus, GERD p/w acute onset difficulty of breathing since last night acute, active dyspnea, POA, initially it was thought be from probable new onset acute CHF with moderate bilateral pleural effusion, free flowing fluid in CT. However, TTE 02/15 showed normal EF, normal LV/RV function, no pericardial/pleural effusion, no valvular dz. It is likely that patient developed interstitial fluid from iatrogenic IVF given for recent pancreatitis/probable cholangitis.PE ruled out. ACS unlikely, EKG WNL, first trop neg. No signs of respiratory infection on images, sx despite recent hospitalization.viral PCR neg. -continue telemetry -O2 supplement with SpO2 target>95% -would consider neb tx given hx of smoking, although suspicion is low. -s/p lasix 40mg iv, 20mg iv with brisk UOP, changed to 20mg PO 02/16, however, given no response, will maintain 40mg po tdoay -added Tessalon Pearls for cough -started incentive spirometer, RT to go over technique, to provent atelectasis new onset diarrhea, nausea,vomiting, developed 02/13-, stool PCR neg, unlikely infectious, possibly medicine induced. Unlikely related to recent pancreatitis given unremarkable abd CT on admission, lipase WNL. -will monitor sx, electrolytes closely, keep K>4, Mg>2 -stopped KCL solution, will consider Imodium -will hold off Tramadol as possible culprit meds Rt lower back pain, flank pain, POA, likely MSK, unlikely pleuritis given nature of pain, small effusion -continue tylenol, tramadol 100mg -monitor sx, if it gets worse, any signs of PNA, will get US for possible thoracentesis of Rt pleural effusion hx of ALLYN, obesity, used to be on CPAP, given nocturnal hypoxia, will resume CPAP at night. chronic, stable Recent pancreatitis, CBD dilatation s/p ERCP, seemed stable, lipase normal, monitor GI sx closely. Depression,Bipolar disorder, Anxiety disorder continue home meds: Doxepin, prazosin, Benztropine Anterior mediastinal mass Arthritis, tylenol prn Morbid obesity, not active Diabetes mellitus,continue lisproSS GERD, ranitidine qhs dispo:within 1-2days when diarrhea resolved diet: cardiac, diabetic dvt ppx:LMWH Full COde Time spent 35min Margareth Dupont MD Feb 17, 2017 11:05
--- NOTE | 2017-02-17 18:43 | NUR ---
Behavior: Patient stated that she thought it was night time this afternoon when she woke up from her nap. Patient stated that she felt a little more confused than normal and felt it might be due to being in the hospital and the days running together. Patient does not feel that this is related to her taking Lorazepam 4 times per day and she stated that she has been taking this med for years with out a side effect. Patient is stable on her feet and able to ambulate to her bathroom and up adlib in her room independently. Reorientation was provided as needed throughout the day.
[2017-02-18] VITALS (7 sets, daily range): BP systolic 112–133; BP diastolic 69–78; PULSE 70–78; RESP 16–18; O2SAT 90–94
--- NOTE | 2017-02-18 06:18 | NUR ---
Brief confusion. Pt was asleep soundly last night at time of HS meds. When Pt was woken she had difficulty speaking and was confused. Pt was easily re-oriented and reported her speech difficulty was from a dry tongue and mouth from mouth breathing. Pt did state that it was Saturday as well as October.
[2017-02-18 06:56] LABS: BASOPHILS % (AUTO) 0.2 % (0-3); EOSINOPHILS % (AUTO) 2.2 % (0-5); MONOCYTES % (AUTO) 7.1 % (4-12); Mean Corpuscular Hemoglobin 26.8 pg (27.0-35.0); Mean Corpuscular Volume 88.4 fL (81-100); NEUTROPHILS % (AUTO) 55.8 % (40-74); Platelet Count 163 bil/L (150-400)
[2017-02-18 07:15] LABS: Magnesium 1.8 mg/dL (1.6-2.6); Phosphorus 3.4 mg/dL (2.5-4.9)
[2017-02-18] MEDS: Insulin LISPRO 300 Unit/3 mL Inj SUBQ SCH ×4 (08:00→22:00)
[2017-02-18] MEDS ORDERED: Furosemide 10 mg/mL 2 mL Inj IVPUSH ONE (08:05)
[2017-02-18] MEDS: Pantoprazole 40 mg ER24 Tablet PO SCH (08:49)
[2017-02-18] MEDS: LORazepam 1 mg Tablet PO SCH ×4 (08:50→21:32)
--- NOTE | 2017-02-18 09:50 | NUR ---
[facility] signed
--- NOTE | 2017-02-18 12:56 | PCM.PNMED ---
Subjective Date of Service Feb 18, 2017 Subjective Dyspnea getting better overall. Continues to have some dyspnea on ambulation. Saturating 90% on room air at rest. Received IV Lasix today. Continues to diarrhea 2-3 episodes per day. Exam Vital Signs Vital Sign - Last Date Time Temp Pulse Resp B/P Pulse Ox O2 Delivery O2 Flow Rate FiO2 02/18/17 09:40 78 02/18/17 09:06 16 94 Room Air 02/18/17 05:17 36.8 121/77 02/16/17 20:37 2.00 Intake and Output 02/17/17 02/17/17 02/18/17 Cumulative From/Thru 15:00 23:00 07:00 02/13/17 10:22 - 02/18/17 06:21 Intake Total 880 ml 200 ml 5627 ml Output Total 425 ml 100 ml 98166 ml Balance 455 ml 100 ml -48661 ml Intake Oral 880 ml 200 ml 5537 ml IV Total 90 ml Output Urine Total 425 ml 100 ml 02643 ml Stool Total 4 ml # Voids 13 # Bowel Movements 1 5 Exam Obese middle-aged female NAD, comfortably laying down on the bed no JVD, MMM, no LAD RRR, nl s1, s2 no mrg decreased BS bibasilar, no wheezing S,ND,NT,normoactive BS+, no RUQ td warm, no edema, pulses 2/2 MSK: mild tenderness+ on paraspinal Lower lumbar spines IVs and Medications Medications Reviewed: Medications were reviewed in detail Lab and Diagnostics Result Diagram: 02/18/1735 02/18/1735 Cardiac Echo Impressions Interpretation Summary The left ventricle is borderline dilated. Left ventricular systolic function is normal without focal wall motion abnormalities. The ejection fraction is estimated to be 60-65%. Assessment of diastolic parameters indicates normal left ventricular diastolic function and normal filling pressures. The right ventricle grossly appears normal in size with probable normal systolic function. The right ventricular systolic pressure is estimated at 43 mmHg assuming a right atrial pressure of 15 mm Hg. Borderline left atrial enlargement. Right atrial size is normal. There is no significant valvular heart disease. The ascending aorta is mildly enlarged. The aortic arch is mildly enlarged. The IVC is dilated (diameter is greater than 2.1 cm) and it collapses less than 50% with a sniff. This suggests a high right atrial pressure of 15 mm Hg. Assessment & Plan 52-year-old female with recent hospitalization02/05-,02/09- with pancreatitis , dilated CBD s/p ERCP, Morbid obesity, Diabetes mellitus, GERD p/w acute onset difficulty of breathing since last night acute, active #. dyspnea, POA, initially it was thought be from probable new onset acute CHF with moderate bilateral pleural effusion, free flowing fluid in CT. However, TTE 02/15 showed normal EF, normal LV/RV function, no pericardial/pleural effusion, no valvular dz. It is likely that patient developed interstitial fluid from iatrogenic IVF given for recent pancreatitis/probable cholangitis.PE ruled out. ACS unlikely, EKG WNL, first trop neg. No signs of respiratory infection on images, sx despite recent hospitalization.viral PCR neg. -continue telemetry -echo shows no systolic or diastolic dysfunction but IVC is dilated (diameter is greater than 2.1 cm) and it collapses less than 50% which is consistent with possible fluid overload -O2 supplement with SpO2 target>95% -would consider neb tx given hx of smoking, although suspicion is low. -s/p lasix 40mg iv, 20mg iv with brisk UOP, changed to 20mg PO 02/16, however, given no response, will maintain 40mg po daily. Will give extra dose of IV Lasix 20 today -added Tessalon Pearls for cough -started incentive spirometer, RT to go over technique, to provent atelectasis\ -Respiratory PCR negative #. new onset diarrhea, nausea,vomiting, developed 02/13-, stool PCR neg, unlikely infectious, possibly medicine induced. Unlikely related to recent pancreatitis given unremarkable abd CT on admission, lipase WNL. -will monitor sx, electrolytes closely, keep K>4, Mg>2 -stopped KCL solution, will consider Imodium -will hold off Tramadol as possible culprit meds -Stool PCR negative #. Rt lower back pain, flank pain, POA, likely MSK, unlikely pleuritis given nature of pain, small effusion -continue tylenol, tramadol 100mg -monitor sx, if it gets worse, any signs of PNA, will get US for possible thoracentesis of Rt pleural effusion #. hx of ALLYN, obesity, used to be on CPAP, given nocturnal hypoxia, will resume CPAP at night. chronic, stable #. Recent pancreatitis, CBD dilatation s/p ERCP, seemed stable, lipase normal, monitor GI sx closely. #. Depression,Bipolar disorder, Anxiety disorder continue home meds: Doxepin, prazosin, Benztropine #. Anterior mediastinal mass #. Arthritis, tylenol prn #. Morbid obesity, not active #. Diabetes mellitus,continue lisproSS #. GERD, ranitidine qhs dispo:within 1-2days when diarrhea resolved, patient states she has significant dyspnea on ambulation. Will do road test today. Possible discharge tomorrow diet: cardiac, diabetic dvt ppx:LMWH Full COde Gadiel Rascon MD Feb 18, 2017 12:56
--- NOTE | 2017-02-18 13:43 | NUR ---
Social work -Readiness for Discharge Data: Pt is on day 5 of hopsitalization for CHF. EMR reviewed: Pt is a readmit - was admitted for pancreatitis and transferred to [facility] for treatment. Pt was discussed in morning rounds and is likely to discharge tomorrow, is up and independent in the room. Pt is declining HH and plans to return home with son's help. She is considering looking into Senior apartments so her son does not have to care for her in the future. She is aware of community resources. Pt to discharge home when medically ready via son. SW will continue to follow. Assessment: Pt would likely benefit from Home Health - high readmit risk - Pt declining at this time. Plan: Likely to discharge home with Son in POV. SW will continue to follow FREDO Bell
--- NOTE | 2017-02-18 19:11 | NUR ---
Mentation Pt A/Ox3 but occasionally responds with words not that do not make sense. Sometimes replaces "day" with "hour" among other phrases. Pt did on occasion have slurred speech and seem very confused but responded well to reorienting. Did not administer scheduled Ativan during confused periods. Pt reports being on Ativan at home and that it does not cause any of those symptoms. Later in shift, pt was in bathroom and became very anxious, fidgeting around, became SOB with activity. Requested O2 for comfort. Pt directed to bed, 2L NC for comfort and given scheduled Ativan. Pt strong and steady on feet, son in room to assist with care.
[2017-02-19 00:41] VITALS: BP 117/76; PULSE 78; RESP 18; O2SAT 92
[2017-02-19 04:44] VITALS: BP 114/70; PULSE 60; RESP 18; O2SAT 93
--- NOTE | 2017-02-19 05:46 | NUR ---
Confusion/Mentation Pt woke up quite confused and incomprehensible throughout the night, and has been reporting hallucinations of animals and insects. No new medications have been given, only same evening meds that she has been receiving. Pt reports getting "stuck" and has trouble word searching with a stammer at times. After being awake for a while this appears to clear up. Pt this AM woke up and came out of room, sat in nurses station chair outside of room, a staff member redirected her back to her room where she became tearful. When approached patient was very dismissive and adamantly denied any medication or help, wishing to be left alone. Will give AM ativan dose and continue to monitor.
[2017-02-19] MEDS: LORazepam 1 mg Tablet PO SCH ×2 (06:08→12:10)
[2017-02-19] MEDS: Pantoprazole 40 mg ER24 Tablet PO SCH (06:08)
--- NOTE | 2017-02-19 06:19 | NUR ---
Anxiety/AMA Pt has escalated and has begun pacing around room, stating they want to "get out of here, i don't care if the doctors don't want me to". Pt is A&Ox3, and took AM scheduled ativan dose. NOC hospitalist paged regarding sudden mental change, plan is to call son and to see if patient can hold on til day mds come to d/c her.
[2017-02-19] MEDS: Insulin LISPRO 300 Unit/3 mL Inj SUBQ SCH ×2 (08:00→12:09)
[2017-02-19 08:32] VITALS: BP 112/73; PULSE 69; RESP 18; O2SAT 92
[2017-02-19 08:50] VITALS: PULSE 76; RESP 16; O2SAT 95
[2017-02-19 10:16] VITALS: PULSE 69
--- NOTE | 2017-02-19 10:22 | PCM.DIMED ---
Discharge Instructions Date of Service Feb 19, 2017 Dates of Hospitalization Feb 13, 2017 at 14:50 Discharge Diagnosis Discharge Diagnosis #. dyspnea, POA,due to suspected iatrogenic fluid overload due to recent hospitalization #. new onset diarrhea, likely noninfectious #. Rt lower back pain, flank pain, POA, likely musculoskeletal, #. hx of ALLYN, obesity, chronic, stable #. Recent pancreatitis, CBD dilatation s/p ERCP, seemed stable, #. Depression,Bipolar disorder, Anxiety disorder #. History of Anterior mediastinal hematoma, resolved #. Arthritis, #. Morbid obesity, #. Diabetes mellitus, #. GERD, Diet Low fat, Low Sodium, Heart Healthy, Diabetic Activity Limited until seen by PCP Call your provider Fever or Chills, Shortness of breath, Bleeding, Chest pain, Vomitting, Excessive diarrhea, Weakness (unilateral) Patient Instructions You were hospitalized due to dyspnea due to suspected fluid overload from your recent hospitalization. You have been diuresed with Lasix and responded well. No need for further diuresis. Echocardiogram negative for heart failure. CT chest negative for pneumonia or blood clots. Please follow-up with PCP in 1 week. Please take Percocet for back pain as prescribed. Follow-up plan Please follow-up with PCP in 1 week. Follow-up Provider: Ml Alfonso MD Follow-up with PCP in: 1 week Gadiel Rascon MD Feb 19, 2017 10:22
[2017-02-19] MEDS ORDERED: OXYC1TAB24 PO (10:25)
--- NOTE | 2017-02-19 11:59 | DRSVH ---
PROCEDURE: X-RAY CHEST ONE VIEW, PORTABLE ([id number]) INDICATIONS: fluid overload TECHNIQUE: One view of the chest was acquired. COMPARISON: [facility], CR, XR CHEST 1VW (PORTABLE), 09/30/2016, 17:42. [facility], CT, CT ANGIO CHEST PE, 02/13/2017, 12:12. [facility], CR, XR CHEST 2VW, 7, 14:26. FINDINGS: Surgical changes and devices: The lower cervical spine fixation hardware. Lungs and pleura: Decrease in size of small pleural effusions. Left basilar airspace opacity redemon strated also slightly decreased. No pneumothorax. Mediastinum: Mediastinal contours appear normal. Heart size is prominent. Bones and chest wall: No suspicious bony lesions. Overlying soft tissues appear unremarkable. IMPRESSION: 1. Decrease in size of small pleural effusions with persistent airspace opacity involving the periphe ral left lung base consistent with compressive atelectasis versus pneumonia. Dictated by: Abhilash OLMEDO Interpreted: Naomi Walters MD on 02/19/2017 at 11:56 Transcribed by: QUINCY on 02/19/2017 at 11:59 Approved by: Naomi Walters MD, PhD on 02/19/2017 at 13:12
--- NOTE | 2017-02-19 13:09 | NUR ---
Discharge Reviewed discharge paperwork, care notes, and medications with pt - disclaimer signed. IV DCd intact, Tele removed, all belongings with pt. No s/sx of distress. Pt escorted out of hospital in at 1305. Son is driving pt home.
--- NOTE | 2017-02-19 13:47 | PCM.DC.MED ---
Discharge Summary Date of Service Feb 19, 2017 Dates of Hospitalization Date of Hospital Admission Feb 13, 2017 at 14:50 Date of Discharge: Feb 19, 2017 Providers: Admitting Physician: Margareth Dupont MD Primary Care Physician: Ml Alfonso MD Attending Physician: Margareth Dupont MD Diagnosis at Time of Discharge Diagnosis at Time of Discharge #. dyspnea, POA,due to suspected iatrogenic fluid overload due to recent hospitalization #. new onset diarrhea, likely noninfectious #. Rt lower back pain, flank pain, POA, likely musculoskeletal, #. hx of ALLYN, obesity, chronic, stable #. Recent pancreatitis, CBD dilatation s/p ERCP, seemed stable, #. Depression,Bipolar disorder, Anxiety disorder #. History of Anterior mediastinal hematoma, resolved #. Arthritis, #. Morbid obesity, #. Diabetes mellitus, #. GERD, Consultations none Procedures XRay, CTs & MRIs CTA PROCEDURE: CT ANGIO CHEST PULMONARY EMBOLISM ([id number]) IMPRESSION: 1. No evidence of pulmonary emboli. 2. Small to moderate-sized bilateral pleural effusions (right greater than left ) with corresponding atelectasis. Superimposed pneumonia is difficult to exclude, particularly at the right lung base given mild bronchial wall thickening. Please correlate clinically. 3. Unchanged pulmonary nodules are compatible with a benign process given lack of significant change since 2013. 4. Mild enlargement of the spleen and liver. There is mild ascites within the upper abdomen. Please correlate clinically for the possibility of cirrhosis or chronic liver disease. 5. Previously seen mediastinal hematoma has resolved in the interim. Dictated by: Hiram Rojo M.D. on 02/13/2017 at 11:24 Cardiac Echo Impression Interpretation Summary The left ventricle is borderline dilated. Left ventricular systolic function is normal without focal wall motion abnormalities. The ejection fraction is estimated to be 60-65%. Assessment of diastolic parameters indicates normal left ventricular diastolic function and normal filling pressures. The right ventricle grossly appears normal in size with probable normal systolic function. The right ventricular systolic pressure is estimated at 43 mmHg assuming a right atrial pressure of 15 mm Hg. Borderline left atrial enlargement. Right atrial size is normal. There is no significant valvular heart disease. The ascending aorta is mildly enlarged. The aortic arch is mildly enlarged. The IVC is dilated (diameter is greater than 2.1 cm) and it collapses less than 50% with a sniff. This suggests a high right atrial pressure of 15 mm Hg. Brief History 52-year-old female with recent hospitalization with pancreatitis, dilated CBD Morbid obesity, Diabetes mellitus, GERD p/w acute onset difficulty of breathing since last night Patient was transferred to [facility] for ERCP per GI recommendation, patient underwent ERCP with biliary stone removal, stent was placed. She will also had colonoscopy, found to have polyps which turned out to be benign. Patient was discharged on stable condition on 02/11, 2days ago. patient stayed at home, mainly stayed at home, didn't notice any abdominal pain , nausea, vomiting, no difficulty breathing at all. Patient slept relatively well without waking up. Yesterday, pt also didn't feel anything different but at night, started having significant shortness of breath, especially when she laid down or when she moved with minimal activities like going to the bathroom, couldn't sleep at all due to difficulty breathing, brought to emergency room by her son. Of note, pt denied any episode of chest pain, never had heart attack in the past. in ED VS BP 140s, HR79, 98% on 2liters and very tachypneic with RR24, noted to be in significant respiratory distress using accessory muscle. CTPE obtained, which showed moderate size bilateral pleural effusion, no PE. no consolidation suggestive of PNA. patient was given 40mg iv lasix. upon interview in ED, pt looked very comfortable, sitting up on the bed, denied SOB, cough, sputum, chest pain, palpitation. ROS: no fever, chills at home, no diarrhea, constipation, no dysuria/frequency, urgency. denied particular sick contact at home after d/c Hospital Course 52-year-old female with recent hospitalization, with pancreatitis , dilated CBD s/p ERCP, Morbid obesity, Diabetes mellitus, GERD p/w acute onset difficulty of breathing since last night acute, active #. dyspnea, POA, initially it was thought be from probable new onset acute CHF with moderate bilateral pleural effusion, free flowing fluid in CT. However, TTE 02/15 showed normal EF, normal LV/RV function, no pericardial effusion, no valvular dz. It is likely that patient developed interstitial fluid from iatrogenic IVF given for recent pancreatitis/probable cholangitis.PE ruled out. ACS unlikely, EKG WNL, first trop neg. No signs of respiratory infection , viral PCR neg. -echo shows no systolic or diastolic dysfunction but IVC is dilated (diameter is greater than 2.1 cm) and it collapses less than 50% which is consistent with possible fluid overload -s/p lasix 40mg iv, 20mg iv with brisk UOP, changed to 20mg PO 02/16, however, given no response, will maintain 40mg po daily. Will give extra dose of IV Lasix 20 today -added Tessalon Pearls for cough -started incentive spirometer, RT to go over technique, to provent atelectasis\ -Respiratory PCR negative #. new onset diarrhea, nausea,vomiting, developed 02/13-, stool PCR neg, unlikely infectious, possibly medicine induced. Unlikely related to recent pancreatitis given unremarkable abd CT on admission, lipase WNL. -will monitor sx, electrolytes closely, keep K>4, Mg>2 -Stool PCR negative #. Rt lower back pain, flank pain, POA, likely MSK, unlikely pleuritis given nature of pain, small effusion -continue tylenol, tramadol 100mg #. hx of ALLYN, obesity, used to be on CPAP, given nocturnal hypoxia, resumed CPAP at night. chronic, stable #. Recent pancreatitis, CBD dilatation s/p ERCP, seemed stable, lipase normal, monitor GI sx closely. #. Depression,Bipolar disorder, Anxiety disorder continue home meds: Doxepin, prazosin, Benztropine #. Anterior mediastinal hematoma seen on recent CT resolved on latest CT #. Arthritis, tylenol prn #. Morbid obesity, stable #. Diabetes mellitus,continue lisproSS #. GERD, ranitidine qhs Discharged to home without diuretics condition on discharge stable Exam Vital Signs (Last) Date Time Temp Pulse Resp B/P Pulse Ox O2 Delivery O2 Flow Rate FiO2 02/19/17 10:16 69 02/19/17 08:50 16 95 Room Air 02/19/17 08:32 36.7 112/73 02/16/17 20:37 2.00 Exam Obese middle-aged female NAD, comfortably laying down on the bed no JVD, MMM, no LAD RRR, nl s1, s2 no mrg decreased BS bibasilar, no wheezing S,ND,NT,normoactive BS+, no RUQ td warm, no edema, pulses 2/2 MSK: mild tenderness+ on paraspinal Lower lumbar spines Test 02/13/17 10:25 02/13/17 12:45 02/13/17 18:14 02/18/17 06:35 Prothrombin Time 10.7sec (8.1-12.5) Prothromb Time International Ratio 1.00ratio Pro-B-Type Natriuretic Peptide 1270pg/mL (0-249) Lipase 15U/L (13-60) Hold Allan Top Tube Received (Received) Urine Color Straw (YELLOW) Urine Appearance Clear (CLEAR,HAZY) Urine pH 6.0 (5.0-8.0) Urine Specific [place] 1.015 (1.003-1.035) Urine Protein Negativemg/dL (NEG,TRACE) Urine Glucose (UA) Negativemg/dL (NEGATIVE) Urine Ketones Negativemg/dL (NEGATIVE) Urine Occult Blood Negative (NEGATIVE) Urine Nitrite Negative (NEGATIVE) Urine Bilirubin Negative (NEGATIVE) Urine Urobilinogen Normalmg/dL (NORMAL) Urine Leukocyte Esterase Negative (NEGATIVE) Urine RBC 0-2/hpf (0-2) Urine WBC 0-5/hpf (0-5) Urine Epithelial Cells Occasional/hpf (NONE-MOD) Urine Crystals None seen (NONE SEEN) Urine Bacteria None/hpf (NONE-FEW) Urine Hyaline Casts None/lpf (NONE) Urine Granular Casts None seen (NONE SEEN) Urine Waxy Casts None seen (NONE SEEN) Urine Red Blood Cell Casts None seen (NONE SEEN) Urine White Blood Cell Casts None seen (NONE SEEN) Urine Mucus None seen (None Seen) Urine Trichomonas None seen (NONE SEEN) Urine Yeast Moderate (NONE SEEN) Urinalysis Comment None Urine Culture Reflexed Not indicated Urine Opiates Screen Negative Urine Methadone Screen Negative Urine Barbiturates Screen Negative Urine Amphetamines Screen Negative Urine Benzodiazepines Screen Negative Urine Cocaine Metabolite Screen Negative Urine Cannabinoids Screen Negative Troponin T < 0.010ug/L (0.0-0.011) White Blood Count 4.1th/mm3 (3.8-10.1) Red Blood Count 3.80mil/mm3 (3.90-5.20) Hemoglobin 10.2g/dL (12.0-15.6) Hematocrit 33.6% (35.0-46.0) Mean Corpuscular Volume 88.4fL (81-100) Mean Corpuscular Hemoglobin 26.8pg (27.0-35.0) Mean Corpuscular Hemoglobin Concent 30.4% (32.0-37.0) Red Cell Distribution Width 14.9% (12.3-15.4) Platelet Count 163bil/L (150-400) Neutrophils (%) (Auto) 55.8% (40-74) Lymphocytes (%) (Auto) 34.5% (14-46) Monocytes (%) (Auto) 7.1% (4-12) Eosinophils (%) (Auto) 2.2% (0-5) Basophils (%) (Auto) 0.2% (0-3) Sodium Level 140mEq/L (134-144) Potassium Level 4.0mEq/L (3.5-5.2) Chloride Level 98mEq/L (97-108) Carbon Dioxide Level 28mmol/L (18-29) Blood Urea Nitrogen 10mg/dL (6-24) Creatinine 0.90mg/dL (0.57-1.00) Estimat Glomerular Filtration Rate 95mL/min (>59) Glucose Level 124mg/dL (60-99) Calcium Level 9.1mg/dL (8.5-10.1) Phosphorus Level 3.4mg/dL (2.5-4.9) Magnesium Level 1.8mg/dL (1.6-2.6) Total Bilirubin 0.3mg/dL (0.0-1.2) Aspartate Amino Transf (AST/SGOT) 57U/L (0-50) Alanine Aminotransferase (ALT/SGPT) 27U/L (0-32) Alkaline Phosphatase 61U/L (25-150) Total Protein 6.0g/dL (6.4-8.4) Albumin 3.6g/dL (3.4-5.0) Discharge Medications Discharge Medications Benztropine Mesylate (Benztropine Mesylate) 1 Mg Tablet 1 MG PO BID (Reported) Doxepin (Doxepin) 150 Mg Capsule 150 MG PO HS (Reported) Gabapentin (Gabapentin) 300 Mg Capsule 600 MG PO TID (Reported) Glimepiride (Glimepiride) 1 Mg Tablet 1 MG PO DAILYWM (Reported) Lorazepam (Lorazepam) 2 Mg Tablet 1 MG PO QID (Reported) Lovastatin (Lovastatin) 20 Mg Tablet 20 MG PO HS (Reported) Metformin (Glucophage) 1,000 Mg Tablet 1,000 MG PO BIDWM (Reported) Omeprazole (Omeprazole) 20 Mg Capsule.dr 20 MG PO QAM (Reported) Prazosin (Prazosin) 1 Mg Capsule 1 MG PO HS (Reported) Ranitidine (Ranitidine) 150 Mg Capsule 150 MG PO HS (Reported) As needed Ondansetron ODT (Ondansetron ODT) 4 Mg Tab.rapdis 4 MG PO QID PRN PRN For Nausea (Reported) oxyCODONE-Acetaminophen 5-325 mg (oxyCODONE-Acetaminophen 5-325 mg) 1 Each Tablet 1 TAB PO Q6H PRN PRN For Pain Prescribed by: ELIO FANG MD Followup Plan Disposition: Home Follow-up plan Please follow-up with PCP in 1 week. Discharge Diet: Low fat, Low Sodium, Heart Healthy, Diabetic Discharge Activity: Limited until seen by PCP Patient Instructions You were hospitalized due to dyspnea due to suspected fluid overload from your recent hospitalization. You have been diuresed with Lasix and responded well. No need for further diuresis. Echocardiogram negative for heart failure. CT chest negative for pneumonia or blood clots. Please follow-up with PCP in 1 week. Please take Percocet for back pain as prescribed. Follow-up Provider: Ml Alfonso MD Follow-up with PCP in: 1 week Time spent 35 minutes copies to: Ml Alfonso MD, Melaku MD Feb 19, 2017 13:46
--- NOTE | 2017-02-19 16:47 | NUR ---
Social work -Discharge Data: Pt is on day 5 of hospitalization for CHF. EMR reviewed: Pt is a readmit - was admitted for pancreatitis and transferred to [facility] for treatment. Pt discharged today per nursing notes, is up and independent in the room. Pt is declining HH and plans to return home with son's help. She is considering looking into Senior apartments so her son does not have to care for her in the future. She is aware of community resources. Pt to discharge home via son. No further needs assessed. Assessment: Pt would likely benefit from Home Health - high readmit risk - Pt declining at this time. Plan: Pt to discharge home with Son in POV. FREDO Bell
[2017-02-19] MEDS ORDERED: Doxepin 50 mg Capsule PO SCH (21:00)
== END 2017-02-19 13:09 | disposition home or self-care (01) | DRG 641 ==
LOC: SED 10:17 → MPC 14:50
PROVIDERS: ADMIT Internal Medicine; ATTEND Internal Medicine
DX: E87.79 Other fluid overload (principal); Z68.42 Body mass index [BMI] 45.0-49.9, adult; E66.01 Morbid (severe) obesity due to excess calories; E11.9 Type 2 diabetes mellitus without complications; K21.9 Gastro-esophageal reflux disease without esophagitis; F17.200 Nicotine dependence, unspecified, uncomplicated; F31.9 Bipolar disorder, unspecified; F41.9 Anxiety disorder, unspecified; Z79.84 Long term (current) use of oral hypoglycemic drugs; M19.90 Unspecified osteoarthritis, unspecified site; R19.7 Diarrhea, unspecified